=== PATIENT | male | born 1945 | race Caucasian/White ===

== ENCOUNTER 2020-03-04 08:23 | Outpatient (CLI) | payer MEDICARE, SELFPAY ==
--- NOTE | ~2020-03-04 | NM_ITS ---
EXAMINATION: NM bone scan whole body DATE: 03/04/2020 12:34 INDICATION: Prostate cancer. TECHNIQUE: 25.7 mCi Tc-99m HDP was administered intravenously. Delayed whole-body scintigrams were o btained. COMPARISON: CT abdomen and pelvis 03/04/2020 FINDINGS: There are multiple foci of increased activity in the pelvic bones correlating with scleroti c lesions by CT, consistent with metastatic disease. There is a focus of increased activity in a lowe r left rib correlating with an old healed fracture by CT. There is focal increased activity overlying the inferior angle of left scapula and a left-sided rib without comparison imaging. IMPRESSION: 1. Multiple foci of increased activity in the pelvic bones correlating with sclerotic lesions by CT, consistent with metastatic disease. 2. Focal increased activity overlying the inferior angle of left scapula and a left-sided rib without comparison imaging, which is indeterminate for metastatic disease. Reviewed, dictated and finalized at location A. IMPRESSION: 1. Multiple foci of increased activity in the pelvic bones correlating with scl erotic lesions by CT, consistent with metastatic disease. 2. Focal increased activity overlying the inferior angle of left scapula and a left-sided rib without comparison imaging, which is indeterminate for metastati c disease.
--- NOTE | ~2020-03-04 | CT_ITS ---
EXAMINATION: CT abdomen pelvis w con DATE: 03/04/2020 09:27 INDICATION: Prostate cancer. TECHNIQUE: Computed tomography (CT) of the abdomen and pelvis was performed with 100 mL Omnipaque 350 intravenous contrast. Automated exposure control and iterative reconstruction technique were employe d. The dose-length product was 437.69 mGy-cm. COMPARISON: Chest CT 01/29/2019 FINDINGS: The visualized portions of the lung bases demonstrate severe emphysema. A calcified left alexi ng nodule is consistent with old granulomatous disease. No pleural effusion. The heart size is normal . No pericardial effusion. There are cysts in the liver measuring up to 2.3 cm. The gallbladder is no rmal. Calcifications in the spleen are consistent with old granulomatous disease. The pancreas and ad renal glands are normal. There are cysts in the kidneys during up to 5.2 cm on the right. The prostat e is mildly enlarged. There are no dilated loops of bowel. The appendix is normal. There is a 1.2 x 1 .9 cm left common iliac node. There are enlarged left internal and external iliac lymph nodes. There is no free intraperitoneal fluid. There is a right inguinal hernia containing fat. Prominent fat in t he left inguinal canal may be a hernia. There are sclerotic lesions in the left ilium, anterior right acetabulum, anterior left acetabulum, bilateral inferior pubic rami, bilateral parasymphyseal pubic bones, and right ischial tuberosity. IMPRESSION: 1. Sclerotic lesions of bone and left pelvic lymphadenopathy, consistent with metastatic disease. Reviewed, dictated and finalized at location A. IMPRESSION: 1. Sclerotic lesions of bone and left pelvic lymphadenopathy, consistent with m etastatic disease.
[2020-03-04 09:21] LABS: Estimated Glomerular Filt Rate > 60
== END 2020-03-04 08:24 | disposition home or self-care (01) ==
PROVIDERS: PCP Family Medicine; Visit Provider Urology
DX: C61 Malignant neoplasm of prostate (principal); M89.9 Disorder of bone, unspecified
CPT/HCPCS: 74177; 78306; A9561; Q9967

== ENCOUNTER 2021-05-22 09:17 | Inpatient (IN) | payer MEDICARE, SELFPAY ==
[2021-05-22] VITALS (27 sets, daily range): BP systolic 100–138; BP diastolic 65–82; PULSE 65–92; RESP 15–26; TEMP 36.1–36.8; O2SAT 92–96; BMI 23.3
--- NOTE | ~2021-05-22 | XR_ITS ---
EXAMINATION: XR chest 1V portable DATE: 05/24/2021 09:51 INDICATION: COVID with right-sided mucous plugging TECHNIQUE: frontal view of the chest was obtained. COMPARISON: Chest radiograph dated 05/22/2021 FINDINGS: Emphysema with upper lung predominant increased lucency and architectural distortion. Thin linear ban dlike opacities in the left upper lung zone and in the right mid and lower lung zones and favor disco id atelectasis/scarring over pneumonia. Calcified nodule at the left lung base consistent with old gr anulomatous disease. The cardiomediastinal silhouette is normal. IMPRESSION: 1. Severe emphysema with scattered atelectasis/scarring in the left upper and right mid and lower hipolito g zones. Reviewed, dictated and finalized at location A. LE WEAVER IMPRESSION: 1. Severe emphysema with scattered atelectasis/scarring in the left upper and r ight mid and lower lung zones.
--- NOTE | ~2021-05-22 | XR_ITS ---
EXAMINATION: XR chest 1V portable DATE: 05/22/2021 10:55 INDICATION: Cough and shortness of breath. TECHNIQUE: A single frontal view of the chest was obtained. COMPARISON: Chest single view 01/27/2019, chest CT 01/29/2019 FINDINGS: The lungs are hyperexpanded with lucencies and coarse interstitial opacities, consistent wi th severe emphysema. Calcified lung nodules and calcified hilar and mediastinal lymph nodes are consi stent with old granulomatous disease. Again seen is a calcified pleural plaque on the right overlying the right hilum. No pleural effusion or pneumothorax. The heart size is normal. IMPRESSION: 1. Severe emphysema. Reviewed, dictated and finalized at location A. AL DIRECTOR IMPRESSION: 1. Severe emphysema.
--- NOTE | ~2021-05-22 | CT_ITS ---
EXAMINATION: CTA chest PE protocol DATE: 05/22/2021 11:48 INDICATION: Cough and shortness of breath. TECHNIQUE: Computed tomography angiography (CTA) of the chest was performed with 100 mL Omnipaque-350 intravenous contrast timed to evaluate the pulmonary arteries. Coronal maximum intensity projection 3D-reconstructions were created by the technologist. Automated exposure control and iterative reconst ruction technique were employed. The dose-length product was 371.45 mGy-cm. COMPARISON: Chest CT 01/29/2019 FINDINGS: There is severe emphysema with multifocal scarring. Again seen is a 6 mm nodule in right mi ddle lobe, likely benign. Calcified pulmonary nodules and calcified hilar and mediastinal lymph nodes are consistent with old granulomatous disease. There is a stable 4 mm nodule in left lower lobe, lik jud benign. There is mucous plugging in right lower lobe. There is a calcified pleural plaque on the right. No pleural effusion. The heart size is normal. There are coronary artery calcifications. No pe ricardial effusion. There is no pulmonary embolus. There are cysts in the liver measuring up to 3.1 c m. There is a 5.3 cm cyst in the right kidney. Calcifications in the spleen are consistent with old g ranulomatous disease. There is severe cervical spondylosis and mild thoracic spondylosis. There is se erin lumbar spondylosis. IMPRESSION: 1. No pulmonary embolus. 2. Severe emphysema with multifocal scarring. Reviewed, dictated and finalized at location A. ER METAL
--- NOTE | 2021-05-22 10:27 | ECG_ITS ---
Measurements Intervals [place] Rate: 70 P: [place]: 0 QRS: -45 QRSD: 94 T: 54 QT: 371 QTc: 403 Interpretive Statements SINUS RHYTHM WITH SHORT [place] INTERVAL LEFT ANTERIOR FASCICULAR BLOCK LOW QRS VOLTAGE IN LIMB LEADS BASELINE ARTIFACT- I, II, III, AVR, AVL, AVF, V1-V6 ABNORMAL ECG Electronically Signed On 05-22-2021 12:31:17 BREAK OFF WORKER by Vidal Oseguera D.O.
--- NOTE | 2021-05-22 10:35 | ED.GENADULT ---
HPI - General Adult General Chief complaint: Weakness Stated complaint: Doesnt feel well for 1 week Time Seen by Provider: 05/22/21 10:07 Source: patient Mode of arrival: ambulatory Limitations: no limitations History of Present Illness HPI narrative: Patient presents for evaluation of respiratory symptoms for the last 7 days. Symptoms include productive cough of white sputum with associated shortness of breath. He is chronic shortness of breath secondary to COPD. He is not on home O2. He has experienced nausea, body aches and chills. He denies any fever, vomiting or leg swelling. Reports pleuritic chest pain. He has underlying hyperlipidemia and CAD. He continues to smoke 1 pack/day. He had a Lexiscan in 2019 that showed a fixed apical defect with ACS CVD 10-year score of 21.5% was smoking in 19.1% without smoking. Ejection fraction was 64%. He has been evaluated by Dr. De Leon in the past. No recent sick contacts to his knowledge. He does not have a history of Covid. He has not received COVID vaccination. He has a history of prostate cancer. Related Data Home Medications Medication Instructions Recorded Confirmed sildenafil 100 mg tablet 100 mg PO DAILY PRN 04/01/19 05/25/20 atorvastatin 40 mg tablet 40 mg PO QPM tablet 11/25/19 05/25/20 enzalutamide 40 mg capsule 160 mg PO DAILY 05/25/20 05/25/20 oxycodone-acetaminophen 5 mg-325 1 tablet PO Q6H PRN 05/25/20 05/25/20 mg tablet Allergies Allergy/AdvReac Type Severity Reaction Status Date / Time meperidine Allergy Severe Unknown Verified 05/25/20 10:00 Review of Systems Review of Systems: CONSTITUTIONAL: Reports chills. Denies fever or sweats. EYES: Denies visual changes, redness, or discharge. ENT: Denies rhinorrhea, congestion, sore throat, or otalgia. CARDIOVASCULAR: Reports pleuritic chest pain. Denies edema RESPIRATORY: Reports productive cough of white sputum and shortness of breath. GASTROINTESTINAL: Reports nausea but denies vomiting. Denies abdominal pain and diarrhea GENITOURINARY: Denies dysuria or hematuria. SKIN: Denies rash or itching. MUSCULOSKELETAL: Reports body aches NEUROLOGIC: Denies headache, numbness, dizziness, or weakness. PSYCHIATRIC: Denies anxiety or depression. [facility] Past Medical History Medical History Bone cancer Dyslipidemia Myocardial infarction, apical Pneumothorax disorder Prostate cancer Surgical History Surgical History H/O carpal tunnel repair b/l - 2006 H/O inguinal hernia repair left - 2005 History of cataract removal with insertion of prosthetic lens S/P cubital tunnel release b/l - 2006 Family History Family History Mother Hypertension Social History Social History Smoking packs per day: 1 Smoking cigarettes per day: 20.0 Years smoked: 57 Smoking pack-years: 57.00 Smoking status: Current every day smoker Tobacco type: cigarettes Second hand tobacco smoke exposure: Yes Smoking end date: 05/15/18 Additional smoking assessment comments: Consumes 1 pack or less daily Alcohol intake: current Alcohol use details: Consumes 1 beer socially Substance use: never Substance use type: does not use Gender identity (if verbalized by the patient): Male Exam Narrative: GENERAL: Well-appearing, well-nourished, and in no acute distress. HEAD: Normocephalic, atraumatic. EYES: PERRLA and EOMI. ENT: Nares clear, no rhinorrhea or epistaxis. Mucous membranes moist. Oropharynx without tonsillar hypertrophy exudate or other lesions. Bilateral TMs pearly huddleston nonbulging NECK: Supple. No adenopathy or masses. No carotid bruits or JVD CHEST: Clear to auscultation. No respiratory distress. Pattern is slightly labored. No wheezes rales or rhonchi H
[2021-05-22] MEDS: IPRATROPIUM BR 0.02% INH SOLN 0.5 MG/2.5 ML VIAL INHALATION (10:50)
[2021-05-22] MEDS: ALBUTEROL SULFATE NEB 2.5 MG/3 ML INH INHALATION (10:50)
[2021-05-22 10:54] LABS: Basophils Percent Auto 0.2 % (0.2-1.2); Hematocrit 42.9 % (42.0-52.0); Hemoglobin 14.4 g/dL (14.0-18.0); Immature Granulocyte Absolute 0.02 K/mm3 (0.00-0.031); Immature Granulocyte Percent A 0.5 % (0-0.5); Immature Platelet Fraction Pct 3.9 % (0.9-11.2); Lymphocytes Percent Auto 15.9 % (18.3-44.2); Mean Corpuscular HGB Conc 33.6 g/dl (32-36); Mean Corpuscular Hemoglobin 29.8 pg (26-34); Mean Corpuscular Volume 88.6 fl (80-100); Mean Platelet Volume 9.8 fl (7.4-10.4); Monocytes Absolute Auto 0.5 K/mm3 (0.1-0.6); Monocytes Percent Auto 10.7 % (2.6-8.5); Neutrophils Absolute Auto 3.2 K/mm3 (1.3-6.7); Neutrophils Percent Auto 72.7 % (45.5-73.1); Platelet Count Result 125 k/mm3 (150-375); Red Blood Count 4.84 M/mm3 (4.6-6.20); Red Cell Distribution Width 13.7 % (11.5-14.5); White Blood Count 4.4 K/mm3 (4.5-10.0)
[2021-05-22 10:57] LABS: EDCOVIDSCREEN Positive (Negative)
[2021-05-22 11:01] LABS: Prothrombin Time 12.7 Seconds (11.1-14.7)
[2021-05-22 11:02] LABS: Alanine Aminotransferase 18 U/L (4-50); Albumin Level 4.2 g/dL (3.5-5.1); Alkaline Phosphatase 68 U/L (38-126); Anion Gap 10 mmol/L (8-16); Aspartate Amino Transferase 31 U/L (17-59); Bilirubin,Total 0.5 mg/dL (0.2-1.3); Blood Urea Nitrogen 20 mg/dL (9-20); Calcium 8.9 mg/dL (8.4-10.2); Carbon Dioxide 25 mmol/L (22-30); Chloride 102 mmol/L (98-107); Estimated CRCL calculation 53 ml/min; Estimated Glomerular Filt Rate > 60; Glucose 110 mg/dL (65-110); Partial Thromboplastin Time 28.6 SECONDS (22.3-36.8); Potassium 4.2 mmol/L (3.4-5.0); Sodium 137 mmol/L (137-145)
[2021-05-22 11:04] LABS: D Dimer 0.65 ug/mL (<0.48)
[2021-05-22 11:13] LABS: Troponin I < 0.012 ng/mL (0.000-0.034)
[2021-05-22 14:52] LABS: CRP 4.4 mg/dL (<1.0); Creatine Kinase 67 U/L (55-170); Lactate Dehydrogenase 469 U/L (313-618)
--- NOTE | 2021-05-22 16:50 | PC.NURSE ---
This patient, Navin Mayberry, was admitted to [facility] Surg Room 305-01. Patient/family oriented to hospital policies and general routines including ID bracelet, bed and alarms, visiting hours, pain management, procedures, bathroom and other care routines, personal items, smoking policy, room service/diet, and visiting hours. Information on how to activate the Rapid Response Team has been discussed. Patient/Family are encouraged to report perceived risks to care and to ask questions if they do not understand what they are told or what they should do.
[2021-05-22] MEDS: ACETAMINOPHEN 325 MG TABLET 650 MG PO (17:14)
--- NOTE | 2021-05-22 17:30 | PM.IMHP ---
H&P: HPI History of Present Illness Date/Time: 05/22/21 17:30 <Meli Tristan PA-C - Last Filed: 05/22/21 22:48> Chief Complaint: Shortness of breath. <Meli Tristan PA-C - Last Filed: 05/22/21 22:48> Narrative: This is a 75-year-old male smoker with COPD and with severe emphysema on imaging and metastatic prostate cancer to the bone who presented to the emergency department earlier today from home for evaluation of shortness of breath. Patient endorses chronic dyspnea on exertion related to his COPD however he has felt increasingly short of breath over the last 7 days. It is now to the point where he has to take 1 step at a time when going up a flight of stairs and it takes him a couple of minutes to recover thereafter. Additionally he reports cough productive of white phlegm, nausea, body aches, chills, and pleuritic chest pain. He did test positive for SARS-CoV-2 by PCR today. Chest x-ray demonstrated severe emphysema but no acute findings. At the time my evaluation he is on room air with an SpO2 around 92%. He feels very weak and is worried that he would not do well if discharged home. Given his clinical risk factors he is being admitted for observation. He denies syncope, near syncope, exertional chest pain, vomiting, and diarrhea. He has not yet received a COVID vaccination. <Meli Tristan PA-C - Last Filed: 05/22/21 22:48> Review of Systems Review of Systems: Twelve systems were reviewed and are negative except for as documented in the HPI. <Meli Tristan PA-C - Last Filed: 05/22/21 22:48> [facility] Past Medical History Medical History: Medical History Benign prostatic hyperplasia COPD with emphysema Coronary artery disease Stress test in February 2019 showed normal global left ventricular function with an EF of 64%. MPI was abnormal and showed a small area of apical infarction with no evidence of ischemia. EKG portion was negative. COVID-19 (05/2021) Diastolic dysfunction Grade 1 diastolic dysfunction noted on echocardiogram in January 2019. Dyslipidemia Pneumothorax Prostate cancer metastatic to bone (02/2020) Tobacco dependence <Meli Tristan PA-C - Last Filed: 05/22/21 22:48> Surgical History Surgical History: Surgical History History of bilateral carpal tunnel release (2005) History of cataract removal with insertion of prosthetic lens History of chest tube placement x5 History of elbow surgery (2005) Bilateral cubital tunnel release. History of left inguinal hernia repair (2004) <Meli Tristan PA-C - Last Filed: 05/22/21 22:48> Family History Family History: Family History Mother Hypertension <Meli Tristan PA-C - Last Filed: 05/22/21 22:48> Social History Social History: Social History (Updated 05/22/21 @ 22:42 by Meli Tristan PA-C) Social History: Surrogate decision maker: Vipin Mayberry (brother) or Sharita Martinez (significant other). Code status: Full code. Smoking packs per day: 1 Smoking cigarettes per day: 20.0 Years smoked: 57 Smoking pack-years: 57.00 Smoking status: Current every day smoker Second hand tobacco smoke exposure: Yes Alcohol intake: current Alcohol use details: Patient will enjoy a beer rarely, socially, and in moderation. Substance use: never Substance use type: does not use Additional living arrangements comments: The patient lives in [place] with his 94-year-old mother. Additional occupation/education comments: Retired from working in maintenance at [employer]. Spiritual care concerns: No <Meli Tristan PA-C - Last Filed: 05/22/21 22:48> Meds Home Medications and Allergies Home medications: Home Medications Medication Instructions Recorded Confirmed Type atorvastatin 40 mg
[2021-05-22] MEDS: REMDESIVIR 200 MG/NS 250 ML 200 MG/250 ML BAG 250 MG IVPB (18:51)
[2021-05-23] VITALS: BP 110/61; PULSE 68; RESP 18; TEMP 36.2; O2SAT 95
[2021-05-23 04:00] VITALS: BP 117/61; PULSE 73; RESP 18; TEMP 36.6; O2SAT 94
[2021-05-23 06:52] LABS: Hematocrit 41.5 % (42.0-52.0); Hemoglobin 13.6 g/dL (14.0-18.0); Immature Granulocyte Absolute 0.02 K/mm3 (0.00-0.031); Immature Granulocyte Percent A 0.3 % (0-0.5); Lymphocytes Absolute Auto 0.73 K/mm3 (0.9-3.2); Lymphocytes Percent Auto 11.3 % (18.3-44.2); Mean Corpuscular HGB Conc 32.8 g/dl (32-36); Mean Corpuscular Hemoglobin 28.9 pg (26-34); Mean Corpuscular Volume 88.1 fl (80-100); Mean Platelet Volume 10.3 fl (7.4-10.4); Monocytes Absolute Auto 0.7 K/mm3 (0.1-0.6); Monocytes Percent Auto 10.1 % (2.6-8.5); Neutrophils Absolute Auto 5.1 K/mm3 (1.3-6.7); Neutrophils Percent Auto 78.3 % (45.5-73.1); Platelet Count Result 129 k/mm3 (150-375); Red Blood Count 4.71 M/mm3 (4.6-6.20); Red Cell Distribution Width 13.6 % (11.5-14.5); White Blood Count 6.5 K/mm3 (4.5-10.0)
[2021-05-23 06:58] LABS: Alanine Aminotransferase 17 U/L (4-50); Albumin Level 3.8 g/dL (3.5-5.1); Alkaline Phosphatase 61 U/L (38-126); Anion Gap 8 mmol/L (8-16); Aspartate Amino Transferase 30 U/L (17-59); Bilirubin,Total 0.4 mg/dL (0.2-1.3); Blood Urea Nitrogen 23 mg/dL (9-20); Calcium 8.8 mg/dL (8.4-10.2); Carbon Dioxide 25 mmol/L (22-30); Chloride 102 mmol/L (98-107); Estimated CRCL calculation 73 ml/min; Estimated Glomerular Filt Rate > 60; Glucose 107 mg/dL (65-110); Magnesium 2.2 mg/dL (1.6-2.3); Potassium 4.3 mmol/L (3.4-5.0); Sodium 135 mmol/L (137-145)
[2021-05-23 07:15] LABS: Prothrombin Time 12.7 Seconds (11.1-14.7)
[2021-05-23 08:00] VITALS: PULSE 70
[2021-05-23] MEDS: predniSONE 20 MG TABLET 40 MG PO (08:55)
[2021-05-23] MEDS: ENOXAPARIN 40 MG/0.4 ML SYRINGE SUB-Q (08:55)
--- NOTE | 2021-05-23 08:59 | PM.IMPN ---
Progress Note: A&P Assessment and Plan (1) COVID-19: Onset Date: 05/2021 Code(s): U07.1 - COVID-19 Status: Acute Assessment and Plan: Given his clinical risk factors he is being admitted. Has near syncope and dizziness and lightheadedness and SOB/dyspnea with exertion and cannot make it to restroom. He has not yet received a COVID vaccination. Poor appetite and stated that he still can't taste anything. eating about 50% of his meals and states that he is drinking without vomiting today. Nausea improved today. ordered a chest x-ray for tomorrow morning ordered albuterol treatments, incentive spirometer, Mucinex and changed his prednisone to dexamethasone. Day 2 of Remdesvimir will need a home O2 study completed prior to discharge. (2) COPD exacerbation: Code(s): J44.1 - Chronic obstructive pulmonary disease with (acute) exacerbation Status: Acute Assessment and Plan: CT scan yesterday showed severe emphysema as well as a right lower lobe mucus weak and extremely dizzy and short of breath when he tries to travel to the bathroom. ordered a chest x-ray for tomorrow morning ordered albuterol treatments, incentive spirometer, Mucinex and changed his prednisone to dexamethasone. will need a home O2 study completed prior to discharge. (3) Tobacco dependence: Code(s): F17.200 - Nicotine dependence, unspecified, uncomplicated Status: Acute Assessment and Plan: continue to teach smoking cessation reinforce smoking education ordered (4) Prostate cancer metastatic to bone: Code(s): C61 - Malignant neoplasm of prostate; C79.51 - Secondary malignant neoplasm of bone Status: Acute Assessment and Plan: very weak and is worried that he would not do well if discharged home. PT/OT ordered H/H stable 13.6/41.5 with plts 129, no fevers at this time. Subjective Date/time seen: 05/23/21 08:59 Navin is feeling better today than when he was admitted. He is still not himself though. As he is weak and extremely dizzy and short of breath when he tries to travel to the bathroom. He will need a home O2 study completed prior to discharge. I have ordered albuterol treatments, incentive spirometer, Mucinex and changed his prednisone to dexamethasone. His CT scan yesterday showed severe emphysema as well as a right lower lobe mucus plugging, I have ordered a chest x-ray for tomorrow morning. Poor appetite and stated that he still can't taste anything. He is eating about 50% of his meals and states that he is drinking without vomiting today. Yesterday he had nausea. Review of Systems Review of Systems: All systems reviewed & are unremarkable except as noted in HPI and below Constitutional: Constitutional: Reports as per HPI, Reports body ache(s), Reports chills, Denies excessive sweating, Reports fatigue, Denies headache(s), Denies increased appetite, Reports lethargy, Reports malaise, Denies snoring, Reports weakness and Denies weight gain Eyes: Eyes: Reports as per HPI, Denies exophthalmos, Denies diplopia, Denies floaters and Denies loss of peripheral vision ENT: Reports as per HPI, Denies facial pain, Denies headache(s), Denies odynophagia and Denies tinnitus Cardiovascular: Cardiovascular: Reports as per HPI, Reports lightheadedness, Reports dyspnea and Reports dyspnea on exertion Respiratory: Respiratory: Reports as per HPI, Reports cough, Reports dyspnea, Reports dyspnea on exertion and Denies snoring Gastrointestinal: Gastrointestinal: Reports as per HPI, Denies abdominal pain, Denies melena, Denies bloating and Denies odynophagia Genitourinary: Genitourinary: Reports as per HPI Musculoskeletal: Musculoskeletal: Reports as per HPI Integumentary/Breasts: Skin/Breast: Reports as per HPI Neurologic: Reports as per HPI and Denies headache(s) Psychiatric: Psychiatric: Reports as per HPI Endocrine: Endocrine: Denies excessive sweating Exam Narrative: General
[2021-05-23] MEDS: FLUTICASONE/UMECLIDIN/VILANTER 100-62.5-25 MCG ELLIPTA 1 PUFF INHALATION (09:03)
[2021-05-23 12:00] VITALS: BP 117/66; PULSE 90; PULSE 94; RESP 20; TEMP 36.3; O2SAT 92
[2021-05-23 16:00] VITALS: BP 120/66; PULSE 76; PULSE 80; RESP 18; TEMP 36.4; O2SAT 95
[2021-05-23 18:59] LABS: INR 0.9; Prothrombin Time 12.3 Seconds (11.1-14.7)
[2021-05-23 19:01] LABS: Alanine Aminotransferase 20 U/L (4-50); Estimated CRCL calculation 58 ml/min; Estimated Glomerular Filt Rate > 60
[2021-05-23] MEDS: ATORVASTATIN 40 MG TABLET PO (21:58)
[2021-05-23] MEDS: REMDESIVIR 100 MG/NS 250 ML 100 MG/250 ML BAG 250 MG IVPB (21:58)
[2021-05-23] MEDS: guaiFENesin 12 HR 600 MG TABCR 1200 MG PO (21:58)
[2021-05-23 21:59] VITALS: BP 102/59; PULSE 73; RESP 18; TEMP 36.2; O2SAT 95
[2021-05-24] VITALS (9 sets, daily range): BP systolic 90–115; BP diastolic 58–83; PULSE 61–85; RESP 14–18; TEMP 35.8–36.8; O2SAT 90–98; BMI 26.6
[2021-05-24 06:49] LABS: Hematocrit 40.9 % (42.0-52.0); Hemoglobin 13.8 g/dL (14.0-18.0); Mean Corpuscular HGB Conc 33.7 g/dl (32-36); Mean Corpuscular Hemoglobin 29.3 pg (26-34); Mean Corpuscular Volume 86.8 fl (80-100); Mean Platelet Volume 10.2 fl (7.4-10.4); Platelet Count Result 154 k/mm3 (150-375); Red Blood Count 4.71 M/mm3 (4.6-6.20); Red Cell Distribution Width 13.4 % (11.5-14.5); White Blood Count 7.8 K/mm3 (4.5-10.0)
[2021-05-24 07:05] LABS: Prothrombin Time 12.7 Seconds (11.1-14.7)
[2021-05-24 07:07] LABS: Alanine Aminotransferase 18 U/L (4-50); Albumin Level 3.9 g/dL (3.5-5.1); Alkaline Phosphatase 65 U/L (38-126); Anion Gap 8 mmol/L (8-16); Aspartate Amino Transferase 34 U/L (17-59); Bilirubin,Total 0.4 mg/dL (0.2-1.3); Blood Urea Nitrogen 24 mg/dL (9-20); CRP 5.7 mg/dL (<1.0); Calcium 8.7 mg/dL (8.4-10.2); Carbon Dioxide 28 mmol/L (22-30); Chloride 101 mmol/L (98-107); Estimated CRCL calculation 65 ml/min; Estimated Glomerular Filt Rate > 60; Glucose 97 mg/dL (65-110); Lactate Dehydrogenase 560 U/L (313-618); Potassium 3.9 mmol/L (3.4-5.0); Sodium 137 mmol/L (137-145)
[2021-05-24] MEDS: guaiFENesin 12 HR 600 MG TABCR 1200 MG PO ×2 (09:05→20:47)
[2021-05-24] MEDS: DEXAMETHASONE 2 MG TABLET 6 MG PO (09:06)
[2021-05-24] MEDS: ENOXAPARIN 40 MG/0.4 ML SYRINGE SUB-Q (09:06)
[2021-05-24] MEDS: FLUTICASONE/UMECLIDIN/VILANTER 100-62.5-25 MCG ELLIPTA 1 PUFF INHALATION (09:55)
[2021-05-24] MEDS: ALBUTEROL SULFATE (*SP) INHALER 2 PUFF INHALATION ×3 (09:55→19:33)
--- NOTE | 2021-05-24 15:10 | PM.IMPN ---
Progress Note: A&P Assessment and Plan (1) COVID-19: Onset Date: 05/2021 Code(s): U07.1 - COVID-19 Status: Acute Assessment and Plan: Given his clinical risk factors he is being admitted. Has near syncope and dizziness and lightheadedness and SOB/dyspnea with exertion and cannot make it to restroom. He has not yet received a COVID vaccination. Poor appetite and stated that he still can't taste anything. eating about 50% of his meals and states that he is drinking without vomiting today. Nausea improved today. ordered a chest x-ray for tomorrow morning ordered albuterol treatments, incentive spirometer, Mucinex and changed his prednisone to dexamethasone. Day 2 of Remdesvimir will need a home O2 study completed prior to discharge. 05/24/2021 Interval history: patient with history of COPD now with exacerbation is found to have a COVID-19 patient being treated with remdesivir D3, patient also started on low-dose of prednisone for his COPD, patient states is feeling much better compared to when he arrived he denies any chest pain shortness of breath palpitation fever or chills, currently patient is on oxygen 2 L nasal cannula, will continue to monitor if remains clinically stable and day or 2, will do the home O2 evaluation and do the with discharge planning (2) COPD exacerbation: Code(s): J44.1 - Chronic obstructive pulmonary disease with (acute) exacerbation Status: Acute Assessment and Plan: CT scan yesterday showed severe emphysema as well as a right lower lobe mucus weak and extremely dizzy and short of breath when he tries to travel to the bathroom. ordered a chest x-ray for tomorrow morning ordered albuterol treatments, incentive spirometer, Mucinex and changed his prednisone to dexamethasone. will need a home O2 study completed prior to discharge. (3) Tobacco dependence: Code(s): F17.200 - Nicotine dependence, unspecified, uncomplicated Status: Acute Assessment and Plan: continue to teach smoking cessation reinforce smoking education ordered (4) Prostate cancer metastatic to bone: Code(s): C61 - Malignant neoplasm of prostate; C79.51 - Secondary malignant neoplasm of bone Status: Acute Assessment and Plan: very weak and is worried that he would not do well if discharged home. PT/OT ordered H/H stable 13.6/41.5 with plts 129, no fevers at this time. Additional Plan The patient presents to the emergency department today for 1 week of symptoms as detailed in HPI in addition to increasing dyspnea on lesser and lesser exertion. COVID-19 tested come back positive however he does not have an oxygen requirement. Given his clinical risk factors he is being admitted for supportive care. He will also be started on remdesivir as UpToDate does recommend that for those with clinical risk factors for severe disease (chronic lung disease and cancer). He received a dose of dexamethasone in the emergency department we will continue with a short course of prednisone given wheezing on exam. Smoking cessation is encouraged however patient does not think he will ever be able to fully quit. He declines the need for nicotine patch at this time. Subjective Date/time seen: 05/24/21 15:10 Given his clinical risk factors he is being admitted. Has near syncope and dizziness and lightheadedness and SOB/dyspnea with exertion and cannot make it to restroom. He has not yet received a COVID vaccination. Poor appetite and stated that he still can't taste anything. eating about 50% of his meals and states that he is drinking without vomiting today. Nausea improved today. ordered a chest x-ray for tomorrow morning ordered albuterol treatments, incentive spirometer, Mucinex and changed his prednisone to dexamethasone. Day 3 of Remdesvimir will need a home O2 study completed prior to discharge. 05/24/2021 Interval history: patient with history of COPD now with exacerbation is found t
[2021-05-24] MEDS: ATORVASTATIN 40 MG TABLET PO (20:47)
[2021-05-24] MEDS: REMDESIVIR 100 MG/NS 250 ML 100 MG/250 ML BAG 250 MG IVPB (20:48)
[2021-05-25] VITALS: BP 119/64; PULSE 59; RESP 14; TEMP 36.6; O2SAT 98
[2021-05-25] MEDS: ALBUTEROL SULFATE (*SP) INHALER 2 PUFF INHALATION ×3 (02:04→14:21)
[2021-05-25 04:00] VITALS: BP 109/57; PULSE 57; RESP 14; TEMP 35.6; O2SAT 98
[2021-05-25 06:50] LABS: Hematocrit 40.9 % (42.0-52.0); Hemoglobin 13.5 g/dL (14.0-18.0); Mean Corpuscular Hemoglobin 29.5 pg (26-34); Mean Corpuscular Volume 89.3 fl (80-100); Platelet Count Result 167 k/mm3 (150-375); Red Blood Count 4.58 M/mm3 (4.6-6.20); Red Cell Distribution Width 13.6 % (11.5-14.5)
[2021-05-25 07:02] LABS: Prothrombin Time 13.4 Seconds (11.1-14.7)
[2021-05-25 07:05] LABS: Alanine Aminotransferase 16 U/L (4-50); Albumin Level 3.3 g/dL (3.5-5.1); Alkaline Phosphatase 57 U/L (38-126); Anion Gap 5 mmol/L (8-16); Aspartate Amino Transferase 26 U/L (17-59); Bilirubin,Total 0.4 mg/dL (0.2-1.3); Blood Urea Nitrogen 21 mg/dL (9-20); CRP 7.2 mg/dL (<1.0); Calcium 8.4 mg/dL (8.4-10.2); Carbon Dioxide 27 mmol/L (22-30); Chloride 103 mmol/L (98-107); Estimated CRCL calculation 85 ml/min; Estimated Glomerular Filt Rate > 60; Glucose 123 mg/dL (65-110); Lactate Dehydrogenase 543 U/L (313-618); Potassium 4.4 mmol/L (3.4-5.0); Sodium 135 mmol/L (137-145)
[2021-05-25 08:00] VITALS: BP 126/68; PULSE 66; RESP 14; TEMP 35.7; O2SAT 97
[2021-05-25] MEDS: FLUTICASONE/UMECLIDIN/VILANTER 100-62.5-25 MCG ELLIPTA 1 PUFF INHALATION (08:04)
[2021-05-25] MEDS: DEXAMETHASONE 2 MG TABLET 6 MG PO (09:03)
[2021-05-25] MEDS: guaiFENesin 12 HR 600 MG TABCR 1200 MG PO ×2 (09:03→21:08)
[2021-05-25] MEDS: ENOXAPARIN 40 MG/0.4 ML SYRINGE SUB-Q (09:03)
[2021-05-25 11:57] VITALS: BP 103/58; PULSE 66; RESP 17; TEMP 35.9; O2SAT 97
[2021-05-25 15:51] VITALS: BP 110/64; PULSE 66; RESP 17; TEMP 35.9; O2SAT 98
[2021-05-25 20:00] VITALS: BP 136/67; PULSE 63; RESP 18; TEMP 36; O2SAT 96
[2021-05-25] MEDS: REMDESIVIR 100 MG/NS 250 ML 100 MG/250 ML BAG 250 MG IVPB (21:08)
[2021-05-25] MEDS: ATORVASTATIN 40 MG TABLET PO (21:08)
[2021-05-26] VITALS (8 sets, daily range): BP systolic 105–130; BP diastolic 50–72; PULSE 71–95; RESP 14–18; TEMP 35.9–36.8; O2SAT 91–96
[2021-05-26] MEDS: ALBUTEROL SULFATE (*SP) INHALER 2 PUFF INHALATION ×4 (01:43→20:05)
[2021-05-26 07:35] LABS: Hematocrit 39.8 % (42.0-52.0); Hemoglobin 13.3 g/dL (14.0-18.0); Mean Corpuscular HGB Conc 33.4 g/dl (32-36); Mean Corpuscular Hemoglobin 28.9 pg (26-34); Mean Corpuscular Volume 86.5 fl (80-100); Mean Platelet Volume 10.7 fl (7.4-10.4); Platelet Count Result 214 k/mm3 (150-375); Red Cell Distribution Width 13.3 % (11.5-14.5); White Blood Count 12.3 K/mm3 (4.5-10.0)
[2021-05-26 08:07] LABS: INR 1.1; Prothrombin Time 13.9 Seconds (11.1-14.7)
[2021-05-26] MEDS: FLUTICASONE/UMECLIDIN/VILANTER 100-62.5-25 MCG ELLIPTA 1 PUFF INHALATION (08:12)
[2021-05-26 08:16] LABS: Alanine Aminotransferase 18 U/L (4-50); Albumin Level 3.6 g/dL (3.5-5.1); Alkaline Phosphatase 65 U/L (38-126); Anion Gap 7 mmol/L (8-16); Aspartate Amino Transferase 25 U/L (17-59); Bilirubin,Total 0.4 mg/dL (0.2-1.3); Blood Urea Nitrogen 20 mg/dL (9-20); CRP 3.9 mg/dL (<1.0); Calcium 8.7 mg/dL (8.4-10.2); Carbon Dioxide 27 mmol/L (22-30); Chloride 102 mmol/L (98-107); Estimated CRCL calculation 85 ml/min; Estimated Glomerular Filt Rate > 60; Glucose 108 mg/dL (65-110); Lactate Dehydrogenase 539 U/L (313-618); Sodium 136 mmol/L (137-145)
[2021-05-26] MEDS: DEXAMETHASONE 2 MG TABLET 6 MG PO (09:08)
[2021-05-26] MEDS: ENOXAPARIN 40 MG/0.4 ML SYRINGE SUB-Q (09:09)
[2021-05-26] MEDS: guaiFENesin 12 HR 600 MG TABCR 1200 MG PO ×2 (09:09→20:50)
--- NOTE | 2021-05-26 18:36 | PM.IMPN ---
Progress Note: A&P Assessment and Plan (1) COVID-19: Onset Date: 05/2021 Code(s): U07.1 - COVID-19 Status: Acute (2) Tobacco dependence: Code(s): F17.200 - Nicotine dependence, unspecified, uncomplicated Status: Acute (3) COPD with emphysema: Code(s): J43.9 - Emphysema, unspecified Status: Acute (4) COPD exacerbation: Code(s): J44.1 - Chronic obstructive pulmonary disease with (acute) exacerbation Status: Acute (5) Prostate cancer metastatic to bone: Code(s): C61 - Malignant neoplasm of prostate; C79.51 - Secondary malignant neoplasm of bone Status: Acute Additional Plan The patient presents to the emergency department today for 1 week of symptoms as detailed in HPI in addition to increasing dyspnea on lesser and lesser exertion. COVID-19 tested come back positive however he does not have an oxygen requirement. Given his clinical risk factors he is being admitted for supportive care. He will also be started on remdesivir as UpToDate does recommend that for those with clinical risk factors for severe disease (chronic lung disease and cancer). He received a dose of dexamethasone in the emergency department we will continue with a short course of prednisone given wheezing on exam. Smoking cessation is encouraged however patient does not think he will ever be able to fully quit. He declines the need for nicotine patch at this time. Given his clinical risk factors he is being admitted. Has near syncope and dizziness and lightheadedness and SOB/dyspnea with exertion and cannot make it to restroom. He has not yet received a COVID vaccination. Poor appetite and stated that he still can't taste anything. eating about 50% of his meals and states that he is drinking without vomiting today. Nausea improved today. ordered a chest x-ray for tomorrow morning ordered albuterol treatments, incentive spirometer, Mucinex and changed his prednisone to dexamethasone. Day 2 of Remdesvimir will need a home O2 study completed prior to discharge. 05/24/2021 Interval history: patient with history of COPD now with exacerbation is found to have a COVID-19 patient being treated with remdesivir D3, patient also started on low-dose of prednisone for his COPD, patient states is feeling much better compared to when he arrived he denies any chest pain shortness of breath palpitation fever or chills, currently patient is on oxygen 2 L nasal cannula, will continue to monitor if remains clinically stable and day or 2, will do the home O2 evaluation and do the with discharge planning 05/25/21 receiving Day 3 of COVID tx on 2L NC anticipate dc in 48hrs cont current care 05/26/21 now on RA recovering nicely cont current care to complete Remdesivir tomorrow anticipate dc home tomorrow will need ongoing encouragement to stop smoking Subjective Date/time seen: 05/26/21 18:36 pt doing ok no new complaints; now weaned to RA anticipate dc after completion of 5th dose of remdesivir Exam Narrative: GEN: comfortable, NAD HEENT: eyes are clear and none icteric LUNGS: normal respiratory effort on RA ABD: soft ND NT Lower extremities: no edema SKIN: no edema no cyanosis Neuro: CN intact AAOx2 Objective Data Vital Signs Vital Signs: Vital Signs - 24 hr 05/25/21 20:00 05/26/21 00:00 05/26/21 04:00 Temperature 96.8 F L 98.3 F 96.6 F L Pulse Rate 63 95 74 Respiratory Rate 18 18 18 Blood Pressure 136/67 130/64 108/65 Pulse Oximetry 96 91 94 05/26/21 08:00 05/26/21 08:18 05/26/21 12:00 Temperature 97.8 F 97.2 F L Pulse Rate 80 72 Respiratory Rate 16 16 Blood Pressure 112/50 L 105/61 Pulse Oximetry 93 94 95 05/26/21 16:00 Temperature 97.9 F Pulse Rate 71 Respiratory Rate 14 Blood Pressure 122/72 Pulse Oximetry 94 Intake/Output Intake/Output: Intake & Output 05/23/21 05/24/21 05/25/21 05/26/21 23:59 23:59 23:59 23:59 Intake Total 0377 6602 2007 8385
[2021-05-26] MEDS: ATORVASTATIN 40 MG TABLET PO (20:50)
[2021-05-26] MEDS: REMDESIVIR 100 MG/NS 250 ML 100 MG/250 ML BAG 250 MG IVPB (20:52)
[2021-05-27] VITALS: BP 109/62; PULSE 65; RESP 16; TEMP 35.8; O2SAT 95
[2021-05-27] MEDS: ALBUTEROL SULFATE (*SP) INHALER 2 PUFF INHALATION ×2 (02:17→08:12)
[2021-05-27 02:20] VITALS: PULSE 88; RESP 18
[2021-05-27 04:00] VITALS: BP 129/68; PULSE 69; RESP 16; TEMP 36; O2SAT 94
[2021-05-27 07:01] LABS: INR 1.1; Prothrombin Time 13.9 Seconds (11.1-14.7)
[2021-05-27 07:09] LABS: Alanine Aminotransferase 16 U/L (4-50); Albumin Level 3.3 g/dL (3.5-5.1); Alkaline Phosphatase 57 U/L (38-126); Anion Gap 5 mmol/L (8-16); Aspartate Amino Transferase 19 U/L (17-59); Bilirubin,Total 0.3 mg/dL (0.2-1.3); Blood Urea Nitrogen 19 mg/dL (9-20); Calcium 8.6 mg/dL (8.4-10.2); Carbon Dioxide 26 mmol/L (22-30); Chloride 105 mmol/L (98-107); Estimated CRCL calculation 73 ml/min; Estimated Glomerular Filt Rate > 60; Glucose 110 mg/dL (65-110); Potassium 4.2 mmol/L (3.4-5.0); Sodium 136 mmol/L (137-145)
[2021-05-27 08:00] VITALS: BP 139/64; PULSE 72; RESP 18; TEMP 36.1; O2SAT 94
[2021-05-27] MEDS: ENOXAPARIN 40 MG/0.4 ML SYRINGE SUB-Q (08:10)
[2021-05-27] MEDS: guaiFENesin 12 HR 600 MG TABCR 1200 MG PO (08:11)
[2021-05-27] MEDS: DEXAMETHASONE 2 MG TABLET 6 MG PO (08:11)
[2021-05-27] MEDS: FLUTICASONE/UMECLIDIN/VILANTER 100-62.5-25 MCG ELLIPTA 1 PUFF INHALATION (08:12)
--- NOTE | 2021-05-27 11:08 | PM.DS ---
DS: Admitting Diagnosis Discharge Date 05/27/21 Admitting Diagnosis Assessment and plan (1) COVID-19: Onset Date: 05/2021 <Meli TristanSOLC - Last Filed: 05/22/21 22:48> Code(s): U07.1 - COVID-19 <Meli Tristan PA-C - Last Filed: 05/22/21 22:48> Status: Acute <Meli TristanTERRENCE-C - Last Filed: 05/22/21 22:48> (2) COPD exacerbation: Code(s): J44.1 - Chronic obstructive pulmonary disease with (acute) exacerbation <Meli Tristan PA-C - Last Filed: 05/22/21 22:48> Status: Acute <Meli Tristan PA-C - Last Filed: 05/22/21 22:48> (3) Tobacco dependence: Code(s): F17.200 - Nicotine dependence, unspecified, uncomplicated <Meli TristanTERRENCE-C - Last Filed: 05/22/21 22:48> Status: Acute <Meli Tristan PA-C - Last Filed: 05/22/21 22:48> (4) Prostate cancer metastatic to bone: Code(s): C61 - Malignant neoplasm of prostate; C79.51 - Secondary malignant neoplasm of bone <Meli TristanTERRENCE-C - Last Filed: 05/22/21 22:48> Status: Acute <Meli Tristan PA-C - Last Filed: 05/22/21 22:48> DS: Discharge Diagnosis Discharge Diagnosis (1) COVID-19: Onset Date: 05/2021 Code(s): U07.1 - COVID-19 Status: Acute (2) Tobacco dependence: Code(s): F17.200 - Nicotine dependence, unspecified, uncomplicated Status: Acute (3) COPD with emphysema: Code(s): J43.9 - Emphysema, unspecified Status: Acute (4) COPD exacerbation: Code(s): J44.1 - Chronic obstructive pulmonary disease with (acute) exacerbation Status: Acute (5) Dyspnea, unspecified: Code(s): R06.00 - Dyspnea, unspecified Status: Acute (6) Prostate cancer metastatic to bone: Code(s): C61 - Malignant neoplasm of prostate; C79.51 - Secondary malignant neoplasm of bone Status: Acute (7) Dyslipidemia: Code(s): E78.5 - Hyperlipidemia, unspecified Status: Acute DS: Summary Hospital Course Reason for hospitalization: Shortness of breath Hospital Course: 75 year olds male smoker with COPD and metastatic prostate CA presented to the emergency room with acute exacerbation of COPD and tested positive for COVID-19. He was admitted to the floor and provided supplemental oxygen. He was placed on remdesivir dexamethasone and provided supportive care. His home medications were continued. Patient did well and responded as anticipated to medical therapy. Upon completion of 5 days of remdesivir he was discharged home in stable condition once again on room air his baseline oxygen status. Patient is given indications to isolate quarantine for 10 additional days and a follow-up with his primary care physician for ongoing care in the outpatient setting. Additionally, he was advised to quit smoking. He was discharged home with additional days of dexamethasone to complete 10 day course. Time spent discussing smoking cessation with patient: 3 to 10 minutes Status at Discharge Functional status at discharge: independent ambulation Overall status at discharge: patient is progressing back to baseline Time Spent with Patient Time attestation: Total time spent providing and/or coordinating discharge services: Time spent: Greater than 30 minutes Exam Narrative: GEN: comfortable, NAD HEENT: eyes are clear and anicteric LUNGS: normal respiratory effort on RA ABD: soft ND NT Lower extremities: no edema SKIN: no edema no cyanosis Neuro: CN intact AAOx3 DS: Data Data Completed and Pending Labs on day of discharge: Labs from last 24 hours 05/27/21 05/27/21 05:52 05:52 PT 13.9 INR 1.1 Sodium 136 L Potassium 4.2 Chloride 105 Carbon Dioxide 26 Anion Gap 5 L BUN 19 Creatinine 0.70 Estim Creat Clear Calc 73 Estimated GFR > 60 Glucose 110 Calcium 8.6 Total Bilirubin 0.3 AST 19 ALT 16 Alkaline Phosphatase 57 Total Protein 5.0 L Al
[2021-05-27 12:00] VITALS: BP 125/60; PULSE 82; RESP 14; TEMP 36.1; O2SAT 96
== END 2021-05-27 13:35 | disposition home or self-care (01) | DRG 178 ==
LOC: ANHED 14:05 → ANH3MEDSUR 14:45
PROVIDERS: Nurse Practitioner; Physician Assistant; Admitting Provider Family Medicine; Emergency Provider Nurse Practitioner; Visit Provider Hospitalist
DX: U07.1 COVID-19 (principal); C79.51 Secondary malignant neoplasm of bone; J44.1 Chronic obstructive pulmonary disease with (acute) exacerbation; C61 Malignant neoplasm of prostate; F17.210 Nicotine dependence, cigarettes, uncomplicated; D69.6 Thrombocytopenia, unspecified; E78.5 Hyperlipidemia, unspecified; I25.2 Old myocardial infarction; I51.89 Other ill-defined heart diseases; N40.0 Benign prostatic hyperplasia without lower urinary tract symptoms; I25.10 Atherosclerotic heart disease of native coronary artery without angina pectoris; R55 Syncope and collapse; R06.09 Other forms of dyspnea; Z98.49 Cataract extraction status, unspecified eye; Z96.1 Presence of intraocular lens; Z97.8 Presence of other specified devices
CPT/HCPCS: 36415; 71045; 71275; 80053; 82550; 82565; 82728; 83615; 83735; 84460; 84484; 85025; 85027; 85055; 85380; 85610; 85730; 86140; 87426; 87804; 93005; 94640; 96365; 96372; 96374; 96375; 97110; 97161; 97165; 99285; A9270; C9803; G0378; J1100; J1650; J7512; J8540; Q9967

== ENCOUNTER 2021-06-07 20:48 | Emergency (ER) | payer MEDICARE, SELFPAY ==
[2021-06-07 20:52] VITALS: BP 139/68; PULSE 73; RESP 18; TEMP 35.9; O2SAT 99
--- NOTE | 2021-06-07 21:47 | PC.NURSE ---
Pt states he no longer has abd. pain, no longer wishes to be seen. IV placed by EMS removed by this RN. Cannula intact, covered with gauze and tape. Pt ambulatory out of ED with steady gait.
== END 2021-06-07 21:58 | disposition left against medical advice (07) ==
LOC: ANHED 21:53
DX: R10.9 Unspecified abdominal pain (principal); U07.1 COVID-19
CPT/HCPCS: 99199

== ENCOUNTER 2022-01-19 13:13 | Outpatient (CLI) | payer MEDICARE, SELFPAY ==
--- NOTE | ~2022-01-19 | PE_ITS ---
EXAMINATION: PET_PETPSMAST_PT DATE: 01/19/2022 15:38 INDICATION: Prostate cancer. TECHNIQUE: 7.378 mCi of piflufolastat F-18 was administered i.v. Low dose computed tomography (CT) im ages were acquired from the base of the brain to the proximal thighs for attenuation correction and a natomic localization. Automated exposure control was employed. Dose-length product (DLP) was 771 mGy- cm. Positron emission tomography (PET) images were acquired in the same distribution. COMPARISON: Chest CT 05/22/2021, CT abdomen and pelvis 03/04/2020, bone scan 03/04/2020 FINDINGS: Head/neck: There is increased activity in the glottis without abnormal CT correlate, likely physiolog ic. There are no pathologically enlarged lymph nodes. Chest: There is severe emphysema. Calcified pulmonary nodules and calcified hilar and mediastinal lym ph nodes are consistent with old granulomatous disease. There are scattered areas of scarring in the lungs. There are calcified pleural plaques on the right. No pleural effusion. The heart size is kenia l. There are coronary artery calcifications. No pericardial effusion. Abdomen/pelvis/proximal thighs: There are cysts in the liver measuring up to 2.7 cm. Calcifications i n the spleen are consistent with old granulomatous disease. The gallbladder, pancreas, and adrenal gl ands are normal. There are cysts in the kidneys measuring up to 5.8 cm on the right. There are bilate ral inguinal hernias containing fat. There are no dilated loops of bowel. The appendix is normal. The re are no pathologically enlarged lymph nodes. There is no free intraperitoneal fluid. There is scler osis in anterior right acetabulum without increased activity. There is sclerosis in the right parasym physeal pubis, right inferior pubic ramus, and right ischial tuberosity with increased activity in ri ght parasymphyseal pubis. There is sclerosis in left parasymphyseal pubis, left inferior pubic ramus, and left ischial tuberosity with increased activity in left ischium. IMPRESSION: 1. Sclerosis in pelvic bones with areas of increased activity, consistent with metastatic disease. Th e CT findings are improved from 03/04/2020. Reviewed, dictated and finalized at location A. IMPRESSION: 1. Sclerosis in pelvic bones with areas of increased activity, consistent with metastatic disease. The CT findings are improved from 03/04/2020.
== END 2022-01-19 13:14 | disposition home or self-care (01) ==
PROVIDERS: PCP Family Medicine; Visit Provider Urology
DX: C61 Malignant neoplasm of prostate (principal); M89.9 Disorder of bone, unspecified
CPT/HCPCS: 78815; A9595

== ENCOUNTER 2022-04-18 14:00 | Inpatient (IN) | payer MEDICARE, SELFPAY ==
[2022-04-18] VITALS (39 sets, daily range): BP systolic 113–165; BP diastolic 61–77; PULSE 82–118; RESP 13–38; TEMP 36.2; O2SAT 88–100
--- NOTE | ~2022-04-18 | XR_ITS ---
XR chest 1V portable 04/18/2022 15:44 Indication: Cough. Shortness of breath. Low oxygen saturation. Procedure: AP portable chest Comparison: Comparison to multiple prior studies sequentially, with oldest reviewed study dated 01/27. Findings: There is emphysema. There is scarring at the left apex. There is calcified granuloma right upper lobe. There is diffuse bilateral mixed interstitial and airspace disease with peribronchial thi ckening, likely edema. Possible small effusion. No pneumothorax. Impression: 1: Diffuse bilateral predominantly interstitial infiltrates with peribronchial thickening, likely damien ma superimposed on emphysema. Cannot exclude underlying pneumonia. Reviewed, dictated and finalized at location A. GER OF PURCHASING Impression: 1: Diffuse bilateral predominantly interstitial infiltrates with peribronchial thickening, likely edema superimposed on emphysema. Cannot exclude underlying p neumonia.
--- NOTE | ~2022-04-18 | US_ITS ---
EXAMINATION: US venous doppler [facility] DATE: 04/18/2022 17:45 INDICATION: edema . TECHNIQUE: Grayscale images without and with compression and Doppler images of the bilateral lower ex tremity veins were obtained. COMPARISON: None FINDINGS: The right common femoral vein, profunda (deep) femoral vein, femoral vein, popliteal vein, peroneal v ein, posterior tibial veins, gastrocnemius vein, and greater saphenous vein are patent. The left common femoral vein, profunda femoral vein, femoral vein, popliteal vein, peroneal vein, pos terior tibial veins, gastrocnemius vein, and greater saphenous vein are patent. IMPRESSION: 1. Patent bilateral lower extremity veins. No evidence of deep venous thrombosis. Reviewed, dictated and finalized at location K. RTS ANALYST IMPRESSION: 1. Patent bilateral lower extremity veins. No evidence of deep venous thrombos is.
--- NOTE | 2022-04-18 14:38 | ECG_ITS ---
Measurements Intervals Fowler Rate: 93 P: 61 MN: 126 QRS: -67 QRSD: 82 T: 63 QT: 353 QTc: 440 Interpretive Statements SINUS RHYTHM BASELINE ARTIFACT LEFT AXIS DEVIATION LOW-VOLTAGE QRS IN LIMB LEADS PATTERN CONSISTENT WITH PULMONARY DISEASE ABNORMAL ECG COMPARED TO ECG 05/22/2021 11:54:21 HEART RATE HAS INCREASED Electronically Signed On 04-18-2022 14:58:05 INSURANCE SPECIAL AGENT by Deshawn De Leon M.D.
[2022-04-18 15:23] LABS: Alanine Aminotransferase 15 U/L (6-50); Albumin Level 4.1 g/dL (3.5-5.1); Alkaline Phosphatase 81 U/L (38-126); Anion Gap 10 mmol/L (8-16); Aspartate Amino Transferase 23 U/L (17-59); Bilirubin,Total 0.7 mg/dL (0.2-1.3); Blood Urea Nitrogen 17 mg/dL (9-20); Calcium 8.6 mg/dL (8.4-10.2); Carbon Dioxide 25 mmol/L (22-30); Chloride 103 mmol/L (98-107); Estimated CRCL calculation 72 ml/min; Estimated Glomerular Filt Rate > 60; Glucose 107 mg/dL (65-110); Potassium 4.1 mmol/L (3.4-5.0); Sodium 138 mmol/L (137-145)
[2022-04-18 15:24] LABS: Basophils Percent Auto 0.3 % (0.2-1.2); Eosinophils Percent Auto 0.2 % (0-4.4); Hematocrit 41.6 % (42.0-52.0); Hemoglobin 13.7 g/dL (14.0-18.0); Immature Granulocyte Absolute 0.02 K/mm3 (0.00-0.031); Immature Granulocyte Percent A 0.2 % (0-0.5); Lymphocytes Absolute Auto 0.72 K/mm3 (0.9-3.2); Lymphocytes Percent Auto 8.2 % (18.3-44.2); Mean Corpuscular HGB Conc 32.9 g/dl (32-36); Mean Corpuscular Hemoglobin 28.6 pg (26-34); Mean Corpuscular Volume 86.8 fl (80-100); Mean Platelet Volume 9.8 fl (7.4-10.4); Monocytes Absolute Auto 0.9 K/mm3 (0.1-0.6); Monocytes Percent Auto 10.2 % (2.6-8.5); Neutrophils Absolute Auto 7.1 K/mm3 (1.3-6.7); Neutrophils Percent Auto 80.9 % (45.5-73.1); Platelet Count Result 216 k/mm3 (150-375); Red Blood Count 4.79 M/mm3 (4.6-6.20); Red Cell Distribution Width 13.8 % (11.5-14.5); White Blood Count 8.8 K/mm3 (4.5-10.0)
[2022-04-18 15:52] LABS: Influenza A QL RT-PCR Positive (Negative); Influenza B QL RT-PCR Negative (Negative); RSV RNA, RT-PCR Negative (Negative); SARS-CoV-2 RNA PCR Negative
[2022-04-18 15:59] LABS: NT Pro B Type Natriuretic Pept 516 pg/mL (5-100); Troponin I < 0.012 ng/mL (0.000-0.034)
[2022-04-18] MEDS: IPRATROPIUM BR 0.02% INH SOLN 0.5 MG/2.5 ML VIAL INHALATION (16:11)
[2022-04-18] MEDS: ALBUTEROL SULFATE NEB 2.5 MG/3 ML INH INHALATION (16:11)
--- NOTE | 2022-04-18 16:15 | ED.SOB ---
HPI - SOB/Dyspnea General Chief Complaint: Shortness of Breath/Dyspnea Stated Complaint: SOB Time Seen by Provider: 04/18/22 15:49 History of Present Illness HPI Narrative: Pt presents with worsening SOB over the last week to the point where he can't walk across the room or get up without becoming very SOB. Pt denies CP or fever. Pt has productive cough of white sputum. Related Data Home Medications Medication Instructions Recorded Confirmed atorvastatin 40 mg tablet 40 mg PO QPM 11/25/19 05/22/21 Allergies Allergy/AdvReac Type Severity Reaction Status Date / Time meperidine Allergy Severe Unknown Verified 04/18/22 15:31 Review of Systems Review of Systems: All systems reviewed & are unremarkable except as noted in HPI and below PMFSH Past Medical History Medical History Benign prostatic hyperplasia COPD with emphysema Coronary artery disease Stress test in February 2019 showed normal global left ventricular function with an EF of 64%. MPI was abnormal and showed a small area of apical infarction with no evidence of ischemia. EKG portion was negative. COVID-19 (05/2021) Diastolic dysfunction Grade 1 diastolic dysfunction noted on echocardiogram in January 2019. Dyslipidemia Pneumothorax Prostate cancer metastatic to bone (02/2020) Tobacco dependence Surgical History Surgical History History of bilateral carpal tunnel release (2005) History of cataract removal with insertion of prosthetic lens History of chest tube placement x5 History of elbow surgery (2005) Bilateral cubital tunnel release. History of left inguinal hernia repair (2004) Family History Family History Mother Hypertension Social History Social History (Updated 05/22/21 @ 22:42 by Meli Tristan PA-C) Social History: Surrogate decision maker: Vipin Mayberry (brother) or Sharita Martinez (significant other). Code status: Full code. Smoking packs per day: 1 Smoking cigarettes per day: 20.0 Years smoked: 57 Smoking pack-years: 57.00 Smoking status: Current every day smoker Second hand tobacco smoke exposure: Yes Alcohol intake: current Alcohol use details: Patient will enjoy a beer rarely, socially, and in moderation. Substance use: never Substance use type: does not use Additional living arrangements comments: The patient lives in [place] with his 94-year-old mother. Additional occupation/education comments: Retired from working in maintenance at [employer]. Spiritual care concerns: No Exam Const: Nutritional Appearance: well nourished Orientation/consciousness: patient oriented x3 Eyes: Conjunctivae: conjunctivae normal EOM: EOMs intact bilaterally Chest: Chest palpation & inspection: normal inspection of the chest Resp: Effort & Inspection: normal respiratory effort Auscultation: wheezes and diminished lung sounds Cardio: Rate: regular rate Rhythm: regular rhythm GI: GI Palp: Yes Soft to palpation and No Tenderness to palpation present (GI) Auscultation: normal bowel sounds Skin: General skin exam: normal color Rashes: no rashes Wounds: no wounds Neuro: General: patient oriented x3, moves all extremities, no meningeal signs and no focal motor deficits Speech: normal speech Extrem: General: edema Psych: Mental Status: mental status grossly normal Affect: normal affect Attitude: cooperative Course Vital Signs Vital signs: Vital Signs Temperature 97.1 F L 04/18/22 14:32 Pulse Rate 96 04/18/22 14:32 Respiratory Rate 18 04/18/22 14:32 Blood Pressure 126/69 04/18/22 14:32 Pulse Oximetry 88 L 04/18/22 14:32 Oxygen Delivery Room Air 04/18/22 14:32 Temperature 97.1 F L 04/18/22 14:32 Pulse Rate 94 04/18/22 18:46 Respiratory Rate 29 H 04/18/22 18:46 Blood Pressure 133/63 04/18/22 18:46
[2022-04-18] MEDS: FUROSEMIDE INJ 40 MG/4 ML VIAL IV PUSH (18:52)
--- NOTE | 2022-04-18 19:15 | PM.IMHP ---
H&P: HPI History of Present Illness Date/Time: 04/18/22 19:15 Chief Complaint: Shortness of breath. Narrative: This is a very pleasant 76-year-old male smoker with COPD, severe emphysema on imaging, diastolic dysfunction, and metastatic prostate cancer to the bone who presented to the emergency department for evaluation of shortness of breath. He has not been feeling well for over a week with mild headache, nonproductive cough, and increasing dyspnea on lesser and lesser exertion. His rescue inhaler has not provided him with much benefit. It is now to the point where he can hardly talk or eat due to shortness of breath. On arrival his SpO2 was 88% on room air and he is currently on 4 liters to maintain his oxygen saturations in the mid 90s. He tested positive for influenza A. Chest x-ray showed diffuse bilateral predominantly interstitial infiltrates with peribronchial thickening, likely edema superimposed on emphysema though cannot exclude underlying pneumonia. In the ED he was given a nebulizer and a dose of IV furosemide and he is being admitted in this setting for further treatment and evaluation. He is feeling perhaps a bit better with the nebulizer but not significantly so. He denies fever, chills, sweats, sore throat, chest pain, pleuritic pain, nausea, vomiting, and diarrhea. He has chronic, mild lower extremity edema and orthopnea at baseline and this is unchanged. Review of Systems Review of Systems: Twelve systems were reviewed and are negative except for as per HPI. [facility] Past Medical History Medical History (Updated 04/18/22 @ 22:30 by Meli Tristan PA-C) Benign prostatic hyperplasia COPD with emphysema Coronary artery disease Stress test in February 2019 showed normal global left ventricular function with an EF of 64%. MPI was abnormal and showed a small area of apical infarction with no evidence of ischemia. EKG portion was negative. COVID-19 (05/2021) Diastolic dysfunction Grade 1 diastolic dysfunction noted on echocardiogram in January 2019. Dyslipidemia Pneumothorax Prostate cancer metastatic to bone (02/2020) Tobacco dependence Surgical History Surgical History History of bilateral carpal tunnel release (2005) History of cataract removal with insertion of prosthetic lens History of chest tube placement x5 History of elbow surgery (2005) Bilateral cubital tunnel release. History of left inguinal hernia repair (2004) Family History Family History Mother Hypertension Social History Social History (Updated 04/18/22 @ 22:26 by Meli Tristan PA-C) Social History: Surrogate decision maker: Vipin Mayberry (brother). Code status: Full code. Smoking packs per day: 1 Smoking cigarettes per day: 20.0 Years smoked: 57 Smoking pack-years: 57.00 Smoking status: Current every day smoker Second hand tobacco smoke exposure: Yes Alcohol intake: current Alcohol use details: Patient will enjoy a beer rarely, socially, and in moderation. Substance use: never Substance use type: does not use Additional living arrangements comments: The patient lives in [place] with his 95-year-old mother. Additional occupation/education comments: Retired from working in maintenance at [employer]. Spiritual care concerns: No Meds Home Medications and Allergies Home Medications Medication Instructions Recorded Confirmed Type atorvastatin 40 mg tablet 40 mg PO QPM 11/25/19 05/22/21 History fluticasone fur. 100 mcg-umeclid 1 inh inhalation DAILY #28 ea 05/18/21 05/22/21 Rx 62.5 mcg-vilant 25 mcg inhalat.powder (Trelegy Ellipta) albuterol sulfate 90 mcg/actuation 2 puff inhalation Q6HRT PRN 05/27/21 Rx aerosol inhaler (Proventil HFA) Shortness Of Breath Or Wheezing 30 days #1 inh dexamethasone 2 mg tablet 6 mg PO DAILY@0800 5 days #15 tabs 05/27/21 Rx Allergies
[2022-04-18 21:47] LABS: Troponin I 0.015 ng/mL (0.000-0.034)
--- NOTE | 2022-04-18 23:32 | PC.NURSE ---
Patient admitted into 3 Med-Surg at 23:05 on 04/18/2022
[2022-04-18] MEDS: methylPREDNISolone SOD SUCC 125 MG VIAL IV PUSH (23:50)
[2022-04-18] MEDS: OSELTAMIVIR PHOSPHATE 75 MG CAPSULE PO (23:50)
[2022-04-18] MEDS: guaiFENesin 12 HR 600 MG TABCR PO (23:51)
[2022-04-19] VITALS (16 sets, daily range): BP systolic 120–135; BP diastolic 60–69; PULSE 66–92; RESP 14–26; TEMP 36.1–36.2; O2SAT 91–99; BMI 26.6
[2022-04-19 00:11] LABS: Troponin I < 0.012 ng/mL (0.000-0.034)
[2022-04-19] MEDS: ALBUTEROL SULFATE NEB 2.5 MG/3 ML INH INHALATION ×4 (01:42→20:30)
[2022-04-19] MEDS: IPRATROPIUM BR 0.02% INH SOLN 0.5 MG/2.5 ML VIAL INHALATION ×4 (01:42→20:30)
[2022-04-19] MEDS: methylPREDNISolone SOD SUCC 125 MG VIAL 60 MG IV PUSH ×3 (05:12→21:53)
[2022-04-19 06:44] LABS: Hematocrit 39.5 % (42.0-52.0); Hemoglobin 13.1 g/dL (14.0-18.0); Mean Corpuscular HGB Conc 33.2 g/dl (32-36); Mean Corpuscular Volume 87.4 fl (80-100); Platelet Count Result 211 k/mm3 (150-375); Red Blood Count 4.52 M/mm3 (4.6-6.20); Red Cell Distribution Width 13.7 % (11.5-14.5); White Blood Count 6.9 K/mm3 (4.5-10.0)
[2022-04-19 07:05] LABS: Alanine Aminotransferase 15 U/L (6-50); Albumin Level 3.9 g/dL (3.5-5.1); Alkaline Phosphatase 72 U/L (38-126); Anion Gap 10 mmol/L (8-16); Aspartate Amino Transferase 28 U/L (17-59); Bilirubin,Total 0.5 mg/dL (0.2-1.3); Blood Urea Nitrogen 18 mg/dL (9-20); Calcium 8.4 mg/dL (8.4-10.2); Carbon Dioxide 28 mmol/L (22-30); Chloride 95 mmol/L (98-107); Estimated CRCL calculation 72 ml/min; Estimated Glomerular Filt Rate > 60; Glucose 166 mg/dL (65-110); Magnesium 1.9 mg/dL (1.6-2.3); Potassium 3.9 mmol/L (3.4-5.0); Sodium 133 mmol/L (137-145)
[2022-04-19 07:55] LABS: Procalcitonin 0.2 ng/mL
[2022-04-19] MEDS: FUROSEMIDE INJ 40 MG/4 ML VIAL IV PUSH (09:24)
[2022-04-19] MEDS: OSELTAMIVIR PHOSPHATE 75 MG CAPSULE PO ×2 (09:25→21:53)
[2022-04-19] MEDS: ENOXAPARIN 40 MG/0.4 ML SYRINGE SUB-Q (09:25)
[2022-04-19] MEDS: guaiFENesin 12 HR 600 MG TABCR PO ×2 (10:10→21:53)
--- NOTE | 2022-04-19 13:07 | PM.IMPN ---
Progress Note: A&P Assessment and Plan (1) Acute respiratory failure with hypoxia: Code(s): J96.01 - Acute respiratory failure with hypoxia Status: Acute Assessment and Plan: secondary to influenza and possibly underlying bacterial pneumonia. Continue Rocephin azithromycin. Continue Tamiflu respiratory status is improved. (2) COPD exacerbation: Code(s): J44.1 - Chronic obstructive pulmonary disease with (acute) exacerbation Status: Acute Assessment and Plan: Continue prednisone continue inhalers (3) Influenza A: Code(s): J10.1 - Influenza due to other identified influenza virus with other respiratory manifestations Status: Acute Assessment and Plan: continue Tamiflu (4) Diastolic dysfunction: Code(s): I51.89 - Other ill-defined heart diseases Status: Acute Assessment and Plan: mildly volume overloaded. One dose of Lasix given. (5) Tobacco dependence: Code(s): F17.200 - Nicotine dependence, unspecified, uncomplicated Status: Acute Subjective Date/time seen: 04/19/22 13:07 No new complaints Exam Narrative: General: Mildly ill-appearing male sitting up in bed. Weight: 81 kilograms. BMI: 28.0. HEENT: PERRL, EOMI. Sclera anicteric. Oral mucosa moist. Neck: Supple. No adenopathy or JVD. Respiratory: Tachypneic, speaking in 5 to 6 word sentences. Occasional pursed lipped breathing. Lung sounds are significantly diminished throughout all lung cantu with scattered crackles and end expiratory wheezing and prolonged expiratory phase. Cardiovascular: Tachycardic with S1-S2. Telemetry shows sinus tachycardia with rates in the low 100s. Gastrointestinal: Abdomen is soft, nontender, and nondistended with positive bowel sounds. Skin: Warm and dry. No rash or lesions on limited exam. Extremities: No cyanosis or clubbing. 1+ kailash ankle edema bilaterally. No palpable knots or cords. Negative Sanpa sign. Neurological: Alert. Cranial nerves 2-12 are grossly intact. No gross focal deficits to casual conversation. Psychiatric: Pleasant and cooperative with normal mood and affect. Judgment and insight intact. Objective Data Vital Signs Vital Signs: Vital Signs - 24 hr 04/18/22 14:32 04/18/22 14:38 04/18/22 15:31 Temperature 97.1 F L Pulse Rate 96 87 Respiratory Rate 18 Blood Pressure 126/69 Pulse Oximetry 88 L 94 Oxygen Delivery Room Air High Flow Nasal Cannula Oxygen Flow Rate 2 04/18/22 15:30 04/18/22 16:12 04/18/22 15:31 Temperature Pulse Rate 99 84 99 Respiratory Rate 29 H 19 18 Blood Pressure 160/74 H 160/74 H Pulse Oximetry 93 96 Oxygen Delivery Oxygen Flow Rate 04/18/22 15:45 04/18/22 15:46 04/18/22 16:07 Temperature Pulse Rate 90 89 89 Respiratory Rate 18 13 28 H Blood Pressure 117/69 Pulse Oximetry 96 93 96 Oxygen Delivery Oxygen Flow Rate 04/18/22 16:15 04/18/22 16:16 04/18/22 16:30 Temperature Pulse Rate 87 82 91 Respiratory Rate 19 22 H 24 H Blood Pressure 136/71 132/72 Pulse Oximetry 100 100 99 Oxygen Delivery Oxygen Flow Rate 04/18/22 16:31 04/18/22 16:45 04/18/22 16:46 Temperature Pulse Rate 96 91 91 Respiratory Rate 26 H 29 H 22 H Blood Pressure 151/64 H Pulse Oximetry 96 96 99 Oxygen Delivery Oxygen Flow Rate 04/18/22 17:00 04/18/22 17:01 04/18/22 17:44 Temperature Pulse Rate 90 90 89 Respiratory Rate 25 H 29 H 23 H Blood Pressure 137/63 Pulse Oximetry 98 98 Oxygen Delivery Oxygen Flow Rate 04/18/22 17:45 04/18/22 17:46 04/18/22 18:00 Temperature Pulse Rate 88 92 83 Respiratory Rate 23 H 29 H 21 H Blood Pressure 136/77 165/74 H Pulse Oximetry Oxygen Delivery Oxygen Flow Rate 04/18/22 18:01 04/18/22 18:15 04/18/22 18:16 Temperature Pulse Rate 87 86 85 Respiratory Rate 21 H 24 H 25 H Blood Pressure 136/66 Pulse Oximetry 96 Oxygen Delivery Oxygen Flow Rate
[2022-04-19] MEDS: FLUTICASONE/UMECLIDIN/VILANTER 100-62.5-25 MCG ELLIPTA 1 PUFF INHALATION (14:22)
[2022-04-19] MEDS: FUROSEMIDE INJ 40 MG/4 ML VIAL 20 MG IV PUSH (15:43)
[2022-04-19] MEDS: ATORVASTATIN 40 MG TABLET PO (17:15)
--- NOTE | 2022-04-19 22:33 | ECHO_ITS ---
Patient Info Name: Navin Mayberry Age: 76 years : 1945 Gender: Male HR: 89 bpm BP: 132 / 64 mmHg Technical Quality: Poor Exam Date: 04/19/2022 11:29 AM Exam Location: [facility] Patient Status: Outpatient Admit Date: 04/18/2022 Staff Ordering Physician: Meli Tristan PA-C [employer] Trainer: Rommel Preciado RDCS, RT Attending Provider: Blas Salinas MD Referring Physician: Kun KING; Exam Type: CA echo doppler color flow Study Info Indications J96.91 - Respiratory failure, unspecified with hypoxia Complete two-dimensional, color flow and Doppler transthoracic echocardiogram is performed. Summary 1. Complete two-dimensional, color flow and Doppler transthoracic echocardiogram is performed. 2. Left ventricular chamber dimension is normal. 3. Definity contrast administered improved wall motion interpretation. 4. Left ventricular systolic function is normal, estimated at 65-70%. 5. The left ventricular diastolic function is grade I diastolic dysfunction. 6. E/e' 10 is mildly elevated. Left Ventricle E/e' 10 is mildly elevated. Definity contrast administered improved wall motion interpretation. Left ventricular chamber dimension is normal. Left ventricular systolic function is normal, estimated at 65-70%. The left ventricular diastolic function is grade I diastolic dysfunction. Right Ventricle Right ventricular systolic function is normal and with normal TAPSE 1.7 cm. Right ventricular chamber dimension is normal. Left Atria Left atrial chamber dimension is normal. Right Atria Right atrial chamber dimension is normal. Aortic Valve The aortic valve is not well visualized. There is no aortic valve stenosis. There is no aortic valve regurgitation. Pulmonic Valve There is no pulmonic regurgitation. Mitral Valve There is no mitral valve stenosis. There is no mitral valve regurgitation. Tricuspid Valve There is no tricuspid valve regurgitation. Pericardium/Pleural There is no pericardial effusion. Inferior Vena Cava Normal inferior vena cava with >50% collapse upon inspiration consistent with normal right atrial pressure, 5 mmHg. Aorta The aortic root size at the sinus of Valsalva is normal. Left Ventricular Outflow Tract Name Value Normal LVOT 2D LVOT Diameter 2.0 cm LVOT Doppler LVOT Peak Gradient 3 mmHg LVOT Mean Gradient 2 mmHg LVOT VTI 15 cm LVOT VTI/AV VTI Ratio 0.7 LVOT Stroke Volume 49 ml Mitral Valve Name Value Normal MV Doppler MV Decel [place] 324 cm/s2 MV PHT 45 ms MV Area (PHT) 4.9 cm2 4.0-5.0 MV Diastolic Function
[2022-04-20] VITALS (18 sets, daily range): BP systolic 125–131; BP diastolic 62–74; PULSE 61–91; RESP 14–22; TEMP 36–36.2; O2SAT 90–95
[2022-04-20] MEDS: IPRATROPIUM BR 0.02% INH SOLN 0.5 MG/2.5 ML VIAL INHALATION ×4 (02:33→22:12)
[2022-04-20] MEDS: ALBUTEROL SULFATE NEB 2.5 MG/3 ML INH INHALATION ×4 (02:33→22:12)
[2022-04-20] MEDS: methylPREDNISolone SOD SUCC 125 MG VIAL 60 MG IV PUSH ×3 (05:39→20:40)
[2022-04-20] MEDS: guaiFENesin 12 HR 600 MG TABCR PO ×2 (08:38→20:39)
[2022-04-20] MEDS: OSELTAMIVIR PHOSPHATE 75 MG CAPSULE PO ×2 (08:38→20:39)
[2022-04-20] MEDS: ENOXAPARIN 40 MG/0.4 ML SYRINGE SUB-Q (08:39)
[2022-04-20] MEDS: FLUTICASONE/UMECLIDIN/VILANTER 100-62.5-25 MCG ELLIPTA 1 PUFF INHALATION (08:48)
[2022-04-20] MEDS: ATORVASTATIN 40 MG TABLET PO (17:11)
--- NOTE | 2022-04-20 17:26 | PM.IMPN ---
Progress Note: A&P Assessment and Plan (1) Acute respiratory failure with hypoxia: Code(s): J96.01 - Acute respiratory failure with hypoxia Status: Acute Assessment and Plan: Patient presents with SOB felt secondary to influenza, COPD exacerbation and possibly underlying bacterial pneumonia. - respiratory status is improved but not back to baseline -Continue Rocephin azithromycin. -Continue Tamiflu -continue neb treatments and steroids. (2) Influenza A: Code(s): J10.1 - Influenza due to other identified influenza virus with other respiratory manifestations Status: Acute Assessment and Plan: As above. Continue Tamiflu to complete a course (3) COPD exacerbation: Code(s): J44.1 - Chronic obstructive pulmonary disease with (acute) exacerbation Status: Acute Assessment and Plan: Improved air exchange. -continue steroids -continue inhalers and nebs (4) Diastolic dysfunction: Code(s): I51.89 - Other ill-defined heart diseases Status: Acute Assessment and Plan: He may have been mildly volume overloaded on admisison and one dose of Lasix given. Appears euvolemic now. -Echo showing diastolic dysfunction with EF 65%. -Follow. -Okay to stop tele (5) Tobacco dependence: Code(s): F17.200 - Nicotine dependence, unspecified, uncomplicated Status: Acute Assessment and Plan: He was educated about the benefits of smoking cessation Subjective Date/time seen: 04/20/22 17:26 Interval history: 76yo male with COPD and metastatic prostate cancer to the bone here for shortness of breath Assuming care. Chart reviewed. Patient still has shortness of breath and significant dyspnea on exertion. He is also wheezing. His cough is nonproductive. No chest pain. He states he is also more short of breath when he talks too much. Eating okay. Does not feel that he is at his baseline. He has not been vaccinated against flu or COVID. Exam Narrative: AF 96.8 128/68 79 20 90% ra General: NARD but does develop dyspnea with talking Respiratory: good air exchange (just finished with neb treatment). end expiratory wheezes CV: RRR S1-S2. Telemetry shows no significant dysrhythmias Gl: Abdomen is soft, nontender, and nondistended with positive bowel sounds. Skin: Warm and dry. No rash or lesions on limited exam. Extremities: No LE edema Neurological: Alert. No gross focal deficits Psychiatric: Pleasant and cooperative with normal mood and affect. Judgment and insight intact. Objective Data Vital Signs Vital Signs: Vital Signs - 24 hr 04/19/22 20:30 04/19/22 20:30 04/19/22 20:45 Temperature Pulse Rate 74 74 77 Respiratory Rate 18 18 Blood Pressure Pulse Oximetry 91 Oxygen Delivery Room Air 04/19/22 21:35 04/19/22 21:55 04/20/22 02:33 Temperature 97.1 F L Pulse Rate 76 63 Respiratory Rate 14 18 Blood Pressure 120/60 Pulse Oximetry 92 Oxygen Delivery Room Air 04/20/22 02:47 04/20/22 04:00 04/20/22 00:01 Temperature Pulse Rate 65 62 71 Respiratory Rate 18 Blood Pressure Pulse Oximetry Oxygen Delivery 04/20/22 04:48 04/20/22 05:55 04/20/22 08:49 Temperature 96.9 F L Pulse Rate 74 73 61 Respiratory Rate 14 18 Blood Pressure 125/62 Pulse Oximetry 93 Oxygen Delivery 04/20/22 08:49 04/20/22 09:01 04/20/22 08:30 Temperature Pulse Rate 66 Respiratory Rate 18 Blood Pressure Pulse Oximetry 95 Oxygen Delivery Room Air Room Air 04/20/22 08:00 04/20/22 12:00 04/20/22 13:46 Temperature 96.8 F L Pulse Rate 87 91 91 Respiratory Rate 18 Blood Pressure 128/68 Pulse Oximetry 90 Oxygen Delivery 04/20/22 14:02 04/20/22 14:15 Temperature Pulse Rate 83 79 Respiratory Rate 22 H 20 Blood Pressure Pulse Oximetry Oxygen Delivery Intake/Output Intake/Output: Intake & Output 04/17/22 04/18/22 04/19/22 1
[2022-04-21] VITALS (8 sets, daily range): BP systolic 120–148; BP diastolic 56–59; PULSE 79–87; RESP 14–20; TEMP 35.5–36.6; O2SAT 91–94
[2022-04-21] MEDS: methylPREDNISolone SOD SUCC 125 MG VIAL 60 MG IV PUSH ×3 (06:32→21:01)
[2022-04-21 07:26] LABS: Anion Gap 5 mmol/L (8-16); Blood Urea Nitrogen 23 mg/dL (9-20); Calcium 8.6 mg/dL (8.4-10.2); Carbon Dioxide 33 mmol/L (22-30); Chloride 93 mmol/L (98-107); Estimated CRCL calculation 72 ml/min; Estimated Glomerular Filt Rate > 60; Glucose 129 mg/dL (65-110); Potassium 3.4 mmol/L (3.4-5.0); Sodium 131 mmol/L (137-145)
[2022-04-21] MEDS: guaiFENesin 12 HR 600 MG TABCR PO (09:23)
[2022-04-21] MEDS: OSELTAMIVIR PHOSPHATE 75 MG CAPSULE PO ×2 (09:23→21:01)
[2022-04-21] MEDS: ENOXAPARIN 40 MG/0.4 ML SYRINGE SUB-Q (09:23)
[2022-04-21] MEDS: FLUTICASONE/UMECLIDIN/VILANTER 100-62.5-25 MCG ELLIPTA 1 PUFF INHALATION (09:55)
[2022-04-21] MEDS: IPRATROPIUM BR 0.02% INH SOLN 0.5 MG/2.5 ML VIAL INHALATION ×3 (09:55→19:48)
[2022-04-21] MEDS: ALBUTEROL SULFATE NEB 2.5 MG/3 ML INH INHALATION ×3 (09:55→19:48)
--- NOTE | 2022-04-21 14:04 | PM.IMPN ---
Progress Note: A&P Assessment and Plan (1) Acute respiratory failure with hypoxia: Code(s): J96.01 - Acute respiratory failure with hypoxia Status: Acute Assessment and Plan: Patient presents with SOB felt secondary to influenza, COPD exacerbation and possibly underlying bacterial pneumonia. -respiratory status is improved but not back to baseline -Continue Rocephin azithromycin. -Continue Tamiflu -continue neb treatments and steroids. (2) Influenza A: Code(s): J10.1 - Influenza due to other identified influenza virus with other respiratory manifestations Status: Acute Assessment and Plan: As above. Continue Tamiflu to complete a course (3) COPD exacerbation: Code(s): J44.1 - Chronic obstructive pulmonary disease with (acute) exacerbation Status: Acute Assessment and Plan: Improved air exchange. -continue steroids but start to wean -continue inhalers and nebs (4) Diastolic dysfunction: Code(s): I51.89 - Other ill-defined heart diseases Status: Acute Assessment and Plan: He may have been mildly volume overloaded on admisison and one dose of Lasix given. Appears euvolemic now. -Echo showing diastolic dysfunction with EF 65%. -Follow. (5) Tobacco dependence: Code(s): F17.200 - Nicotine dependence, unspecified, uncomplicated Status: Acute Assessment and Plan: He was educated about the benefits of smoking cessation Subjective Date/time seen: 04/21/22 14:04 Interval history: 76yo male with COPD and metastatic prostate cancer to the bone here for shortness of breath Patient was up coughing at night. Still dry and nonproductive. Still has significant dyspnea on exertion. No chest pain. Exam Narrative: AF 97.5 120/57 83 20 94% ra General: NARD Chest - distant BS, expiratory rhonchi CV: RRR S1-S2 Gl: Abd is soft, NT/ND, +BS Ext - No LE edema Neuro - No gross focal deficits Psychiatric: Pleasant and cooperative Skin: Warm and dry. Objective Data Vital Signs Vital Signs: Vital Signs - 24 hr 04/20/22 14:15 04/20/22 16:00 04/20/22 21:30 Temperature 97.2 F L Pulse Rate 79 89 72 Respiratory Rate 20 20 Blood Pressure 131/74 Pulse Oximetry 95 Oxygen Delivery 04/20/22 22:15 04/20/22 22:16 04/20/22 22:31 Temperature Pulse Rate 82 81 Respiratory Rate 20 20 Blood Pressure Pulse Oximetry 93 Oxygen Delivery Room Air 04/21/22 05:41 04/21/22 09:56 Temperature 97.5 F L Pulse Rate 85 83 Respiratory Rate 20 20 Blood Pressure 120/57 L Pulse Oximetry 94 Oxygen Delivery Intake/Output Intake/Output: Intake & Output 04/18/22 04/19/22 04/20/22 04/21/22 23:59 23:59 23:59 23:59 Intake Total 4760 1830 1325 Output Total 1150 Balance 4760 680 1325 Meds/Results Medications: Active Medications Generic Name Dose Route Start Last Admin Trade Name Freq PRN Reason Stop Dose Admin Acetaminophen 650 mg 04/18/22 22:25 Acetaminophen 325 Mg Tablet PO Q6H PRN Mild Pain (1-3) or Fever Albuterol 2.5 mg 04/19/22 02:00 04/21/22 09:55 Albuterol Sulfate Neb 2.5 Mg/3 Ml Inh INHALATION 2.5 mg Q6HRT TAYLOR Administration Albuterol 2 puff 04/19/22 13:07 Albuterol Sulfate (*Sp) Aerosol 1 Puff INHALATION Q6HRT PRN Shortness Of Breath Or Wheezing Atorvastatin Calcium 40 mg 04/19/22 18:00 04/20/22 17:11 Atorvastatin 40 Mg Tablet PO 40 mg QPM TAYLOR Administration Enoxaparin Sodium 40 mg 04/19/22 09:00 04/21/22 09:23 Enoxaparin 40 Mg/0.4 Ml Syringe SUB-Q 40 mg DAILY TAYLOR Administration Fluticasone/Umeclidinium/Vilanterol 1 puff 04/19/22 13:30 04/21/22 09:55 Fluticasone/Umeclidin/Vilanter 100-62.5-25 Mcg Ellipta INHALATION 1 puff DAILYRT TAYLOR Administration Guaifenesin 600 mg 04/18/22 22:40 04/21/22 09:23 Guaifenesin 12 Hr 600 Mg Tabcr PO 600 mg Q12HR TAYLOR Administration
[2022-04-21] MEDS: ATORVASTATIN 40 MG TABLET PO (17:13)
[2022-04-21] MEDS: guaiFENesin 12 HR 600 MG TABCR 1200 MG PO (21:01)
[2022-04-22] VITALS (9 sets, daily range): BP systolic 139–142; BP diastolic 67–78; PULSE 74–100; RESP 14–20; TEMP 36.1–36.2; O2SAT 91–96
[2022-04-22] MEDS: IPRATROPIUM BR 0.02% INH SOLN 0.5 MG/2.5 ML VIAL INHALATION ×3 (02:17→13:49)
[2022-04-22] MEDS: ALBUTEROL SULFATE NEB 2.5 MG/3 ML INH INHALATION ×3 (02:17→13:49)
[2022-04-22] MEDS: ENOXAPARIN 40 MG/0.4 ML SYRINGE SUB-Q (08:52)
[2022-04-22] MEDS: guaiFENesin 12 HR 600 MG TABCR 1200 MG PO (08:52)
[2022-04-22] MEDS: methylPREDNISolone SOD SUCC 125 MG VIAL 60 MG IV PUSH (08:52)
[2022-04-22] MEDS: OSELTAMIVIR PHOSPHATE 75 MG CAPSULE PO (08:53)
[2022-04-22] MEDS: ACETAMINOPHEN 325 MG TABLET 650 MG PO (08:57)
[2022-04-22] MEDS: FLUTICASONE/UMECLIDIN/VILANTER 100-62.5-25 MCG ELLIPTA 1 PUFF INHALATION (09:48)
--- NOTE | 2022-04-22 16:03 | PM.DS ---
DS: Admitting Diagnosis Discharge Date 04/22/22 Admitting Diagnosis Shortness of breath DS: Discharge Diagnosis Discharge Diagnosis (1) Acute respiratory failure with hypoxia: Code(s): J96.01 - Acute respiratory failure with hypoxia Status: Acute (2) Influenza A: Code(s): J10.1 - Influenza due to other identified influenza virus with other respiratory manifestations Status: Acute (3) COPD exacerbation: Code(s): J44.1 - Chronic obstructive pulmonary disease with (acute) exacerbation Status: Acute (4) Diastolic dysfunction: Code(s): I51.89 - Other ill-defined heart diseases Status: Acute (5) Tobacco dependence: Code(s): F17.200 - Nicotine dependence, unspecified, uncomplicated Status: Acute DS: Summary Hospital Course Reason for hospitalization: 76yo male with COPD and metastatic prostate cancer to the bone here for shortness of breath. Please see H&P for details Hospital Course: Patient presents with shortness of breath found to have influenza A. CXR showing diffuse bilateral interstitial infiltrates edema with emphysema and possible PNA. He may have been mildly volume overloaded on admission and one dose of Lasix given. Appeared euvolemic. Echo showing diastolic dysfunction with EF 65%. He was started on Rocephin and azithromycin. Influenza A positive so Tamiflu also started. Steroids and nebulizer treatments also begun. He was educated about the benefits of smoking cessation. He has clinical improvement. He was easily weaned to room air. He was up walking to the bathroom and felt his NUNEZ was back to baseline. He overall did well and was able to be discharged home on 04/22/22 Status at Discharge Cognitive/behavioral status at discharge: stable Time Spent with Patient Time attestation: Total time spent providing and/or coordinating discharge services: 31 minutes Time spent: Greater than 30 minutes Exam Narrative: AF 97.0 142/78 96 20 96% ra General: NARD Chest - few mid and lower basilar rhonchi. nml RR CV: RRR S1-S2 Abd: soft, NT/ND, +BS Ext - No LE edema Psychiatric: Pleasant and cooperative Skin: Warm and dry. Discharge Plan Discharge Attending physician on discharge: Victor M Graves Discharging Clinician: Victor M Graves Anticipated Discharge Date/Time: 04/22/22 16:17 Patient Disposition: Home, Self-Care Activity: as tolerated Diet: heart healthy Discharge Instructions: Please avoid large gathering, wear face coverings in public and practice social distance. Please complete your antibiotic course even if you are starting to feel well. Take precautions to avoid falls. Rise slowly from a lying or sitting position. Pause before standing or walking. Contact your doctor or call 911 and come to the Emergency Room if you have fevers or other worrisome symptoms. Follow-up with your primary care provider in 1-2 weeks. Please call for appointment. Thank you for using [facility] for your health care needs. Patient Instructions: Antibiotic Form, How to Stop Smoking (GEN), Cigarette Smoking and Your Health (GEN) Stand Alone Forms: General Discharge Information Follow-up/Referrals: Contreras Wallis MD [Primary Care Provider] - Call for Appointment Discharge Medications: New oseltamivir [Tamiflu] 75 mg Capsule 75 mg PO Q12HR Qty: 2 0RF guaifenesin [Mucus Relief ER] 600 mg Tablet Extended Release 12hr 1,200 mg PO Q12HR Qty: 20 0RF cefdinir 300 mg capsule 300 mg PO Q12H 3 Days Qty: 6 0RF prednisone 20 mg tablet 40 mg PO DAILY 5 Days Qty: 10 0RF Continued atorvastatin 40 mg tablet 40 mg PO QPM Trelegy Ellipta 1 puff inhalation DAILY albuterol sulfate [Proventil HFA] 90 mcg/actuation Hfa Aerosol Inhaler 2 puff inhalation Q6HRT PRN (Reason: Shortness Of Breath Or Wheezing) 30 Days Qty: 1 0RF Date of admission: 04/20/22 16:07 Primary Ca
[2022-04-22] MEDS: AZITHROMYCIN 250 MG TABLET PO (16:53)
[2022-04-22] MEDS: ATORVASTATIN 40 MG TABLET PO (16:54)
[2022-04-22 17:35] LABS: Mycoplasma IgM Antibody Titer 142 U/mL (<770)
[2022-04-23 00:16] LABS: Pneumococcal Antigen Urine Not Detected (Not Detected)
[2022-04-23 04:27] LABS: Legionella pneumophila Ag Ur Not Detected (Not Detected)
== END 2022-04-22 17:00 | disposition home or self-care (01) | DRG 193 ==
LOC: ANHED 16:56 → ANH3MEDSUR 19:25
PROVIDERS: Emergency Medicine; Physician Assistant; Admitting Provider Internal Medicine; Emergency Provider Emergency Medicine; PCP Family Medicine; Visit Provider Internal Medicine
DX: J10.08 Influenza due to other identified influenza virus with other specified pneumonia (principal); J96.01 Acute respiratory failure with hypoxia; C79.51 Secondary malignant neoplasm of bone; J15.9 Unspecified bacterial pneumonia; J44.0 Chronic obstructive pulmonary disease with (acute) lower respiratory infection; J44.1 Chronic obstructive pulmonary disease with (acute) exacerbation; N40.0 Benign prostatic hyperplasia without lower urinary tract symptoms; I25.10 Atherosclerotic heart disease of native coronary artery without angina pectoris; E78.5 Hyperlipidemia, unspecified; C61 Malignant neoplasm of prostate; F17.210 Nicotine dependence, cigarettes, uncomplicated; I50.9 Heart failure, unspecified; Z20.822 Contact with and (suspected) exposure to COVID-19; Z28.310 Unvaccinated for COVID-19
CPT/HCPCS: 36415; 71045; 80048; 80053; 83735; 83880; 84145; 84484; 85025; 85027; 86140; 86738; 87449; 87637; 87899; 93005; 93306; 93970; 94640; 96365; 96366; 96367; 96372; 96374; 96375; 96376; 99285; A9270; G0378; J0456; J0696; J1650; J1940; J2930

== ENCOUNTER 2022-08-25 09:43 | Outpatient (CLI) | payer MEDICARE, SELFPAY ==
--- NOTE | 2022-08-26 13:30 | WPDSIXMINUTE ---
Six Minute Walk Procedure Procedure Performed Pulmonary Stress Test (6 min walk) Six Minute Walk Six Minute Walk: DOS: 08/25/2022 REQUESTING: Cassia Walker MD REASON FOR TEST: COPD SIX MINUTE WALK This test was conducted per ATS guidelines. The patient was breathing room air during testing, and he used his cane. Initial saturation was 94% and pulse was 79. The patient walked with a 2nd break to reapply the pulse oximeter due to artifact. At the end of testing pulse was 96 and saturation was 92%. The lowest saturation during testing was 90%. Distance walked was 450 ft/ 137.1 meters. IMPRESSION: Patient had mild desaturation without soni hypoxemia. He does not qualify for supplemental oxygen with exertion.
--- NOTE | 2022-08-26 13:37 | WPDPFTINT ---
PFT Procedure Performed PFT Procedure Performed Spirometry with Pre/Post Bronchodilator Plethysmography (Lung Vol) Diffusing Cap (DLCO) Flow Vol Loop PFT Interpretation DOS: 08/25/2022 REQUESTING: Cassia Walker MD REASON FOR TEST: COPD PULMONARY FUNCTION TESTS Results are reliable and reproducible. SPIROMETRY: Pre bronchodilator FEV1 is 0.9 L, 33%, extremely low. Pre bronchodilator FEV1 is 3.41 L, 94%, normal. FEV1/FVC ratio 26%, extremely low consistent with airflow obstruction. After bronchodilator administration there is a 6% drop in the FEV1 and a 4% drop in the FVC. The FEV1/ FVC ratio remains 26%. This is a non statistically significant change. LUNG VOLUMES: Total lung capacity is 8.20 L, 128% predicted, consistent with mild hyperinflation. Residual volume is 4.57 L, 190% predicted consistent with severe air trapping. RV/TLC is elevated 56%. Airway resistance 6.75 cmH20/L/sec, 479% predicted. DIFFUSION: DLCO is 9.3, 40% predicted, severely reduced. DLCO/VA is 2.1, 54%, severely reduced. FLOW VOLUME LOOP: There is extremely severe coving of the expiratory limb. IMPRESSION: This pulmonary function study shows extremely severe obstructive ventilatory impairment without significant response to bronchodilator, mild hyperinflation, severe air trapping and severe diffusion impairment. This pattern is consistent with emphysema. Lack of response to bronchodilator should not preclude use if clinically indicated. Compared to a prior study on 05/20/2019 values are similar. FEV1 was 1.10 L, 43%, now worse, FEV1 is lower, 0.90 L, 33%. Total lung capacity was 7.91 L, 138% predicted, and now total lung capacity is 8.20 L, 128%. Residual volume is now larger, 4.57 L, 190% and previously this was 3.71 L, 155%. There is more air trapping. Diffusion is worse, previously was 64% and now is 40%. There was no correction for alveolar volume.
== END 2022-08-25 09:44 | disposition home or self-care (01) ==
LOC: ANHPFT 09:53
PROVIDERS: PCP Family Medicine; Visit Provider Family Medicine
DX: J44.9 Chronic obstructive pulmonary disease, unspecified (principal)
CPT/HCPCS: 94060; 94618; 94726; 94729

== ENCOUNTER 2022-09-23 10:55 | Outpatient (CLI) | payer MEDICARE, SELFPAY ==
--- NOTE | ~2022-09-23 | XR_ITS ---
Lumbosacral Spine: AP and lateral views Clinical History: Pain Findings: The normal lordotic curve is maintained. 8 mm retrolisthesis of L2 over L3 noted. There is advanced degenerative disc narrowing at L1-L2 and L2-L3. There is mild degenerative disc narrowing at remaining lumbar levels. There is mild facet arthropathy throughout the lumbar spine. No fracture ev ident. The sacroiliac joints are normally outlined. Impression: 8 mm retrolisthesis of L2 over L3. [id number] degenerative spondylosis otherwise, as detailed above. Reviewed, dictated and finalized at location M. Impression: 8 mm retrolisthesis of L2 over L3. [id number] degenerative spondylosis otherwise, as detailed above.
--- NOTE | ~2022-09-23 | XR_ITS ---
XR hip RT min 2V 09/23/2022 11:31 Indication: Right hip pain. Prostate cancer. Procedure: 2 views right hip Comparison: CT dated 03/04/2020 Findings: There is a possible healed right superior and left inferior pubic rami fractures. There is anatomic alignment of the hip. No acute fractures identified. No significant soft tissue abnormality. No suspicious sclerotic lesions. Impression: 1: No acute bone or joint abnormality. Reviewed, dictated and finalized at location B. Impression: 1: No acute bone or joint abnormality.
== END 2022-09-23 10:56 | disposition home or self-care (01) ==
PROVIDERS: PCP Family Medicine; Visit Provider Physician Assistant Medical
DX: C61 Malignant neoplasm of prostate (principal); C79.51 Secondary malignant neoplasm of bone; M47.896 Other spondylosis, lumbar region
CPT/HCPCS: 72100; 73502

== ENCOUNTER 2022-09-27 13:30 | Outpatient (RCR) | payer MEDICARE, SELFPAY | END 2022-11-02 14:47 | disposition home or self-care (01) | LOC: ANHCPREHAB 13:30 | PROVIDERS: PCP Family Medicine; Visit Provider Family Medicine | DX: J43.9 Emphysema, unspecified (principal) | CPT/HCPCS: 94625 ==